=== PATIENT | male | born 1930 | race Caucasian/White ===

== ENCOUNTER → 2016-11-14 | Outpatient (REF) | payer MEDICARE ==
[2016-11-14 12:53] LABS: ALBUMIN 3.7 GM/DL (3.2-5.2); ALBUMIN/GLOBULIN RATIO 1.32 (1.00-1.93); ALKALINE PHOSPHATASE 72 U/L (45-117); ALT/SGPT 28 U/L (12-78); ANION GAP 5 MEQ/L (8-16); AST/SGOT 24 U/L (15-37); BILIRUBIN,TOTAL 0.5 MG/DL (0.2-1.0); BLOOD UREA NITROGEN 14 MG/DL (7-18); CALCIUM LEVEL 9.2 MG/DL (8.8-10.2); CARBON DIOXIDE LEVEL 30 MEQ/L (21-32); CHLORIDE LEVEL 106 MEQ/L (98-107); CHOLESTEROL LEVEL 171 MG/DL (<200); CREATININE FOR GFR 0.99 MG/DL (0.70-1.30); GLOMERULAR FILTRATION RATE > 60.0 (>35); GLUCOSE, FASTING 91 MG/DL (83-110); POTASSIUM SERUM 4.4 MEQ/L (3.5-5.1); SODIUM LEVEL 141 MEQ/L (136-145); TOTAL PROTEIN 6.5 GM/DL (6.4-8.2); TRIGLYCERIDES LEVEL 57 MG/DL (<150)
== END ==
LOC: M SFHCCLAY 08:24
PROVIDERS: ATTEND Nurse Practitioner
DX: I10 Essential (primary) hypertension (principal)

== ENCOUNTER → 2017-06-03 | Outpatient (REF) | payer MEDICARE | LOC: M SFHCCLAY 08:18 | PROVIDERS: ATTEND Nurse Practitioner | DX: R30.0 Dysuria (principal) ==

== ENCOUNTER → 2017-10-28 | Outpatient (REF) | payer MEDICARE | LOC: M SFHCCLAY 10-29 11:13 | DX: R30.0 Dysuria (principal) | CPT/HCPCS: 87186 ==

== ENCOUNTER → 2017-12-18 | Outpatient (REF) | payer MEDICARE ==
[2017-12-18 12:00] LABS: TOTAL 25(OH) VITAMIN D 37.8 NG/ML (30.0-100.0)
[2017-12-18 12:01] LABS: ALBUMIN 3.7 GM/DL (3.2-5.2); ALBUMIN/GLOBULIN RATIO 1.16 (1.00-1.93); ALKALINE PHOSPHATASE 79 U/L (45-117); ALT/SGPT 25 U/L (12-78); ANION GAP 3 MEQ/L (8-16); AST/SGOT 22 U/L (7-37); BILIRUBIN,TOTAL 0.6 MG/DL (0.2-1.0); BLOOD UREA NITROGEN 15 MG/DL (7-18); CALCIUM LEVEL 9.3 MG/DL (8.8-10.2); CARBON DIOXIDE LEVEL 30 MEQ/L (21-32); CHLORIDE LEVEL 109 MEQ/L (98-107); CHOLESTEROL LEVEL 154 MG/DL (<200); CHOLESTEROL RISK RATIO 2.406 (<5); CREATININE FOR GFR 0.95 MG/DL (0.70-1.30); GLOMERULAR FILTRATION RATE > 60.0 (>35); GLUCOSE, FASTING 87 MG/DL (70-100); HDL CHOLESTEROL 64 MG/DL (>40); LDL CHOLESTEROL 79.4 MG/DL (<100); NON-HDL-C 90 MG/DL; POTASSIUM SERUM 4.4 MEQ/L (3.5-5.1); SODIUM LEVEL 142 MEQ/L (136-145); TOTAL PROTEIN 6.9 GM/DL (6.4-8.2); TRIGLYCERIDES LEVEL 53 MG/DL (<150)
== END ==
LOC: M SFHCCLAY 08:03
DX: I10 Essential (primary) hypertension (principal)
CPT/HCPCS: 84443

== ENCOUNTER → 2017-12-25 | Outpatient (CLI) | payer MEDICARE | LOC: M CLY 15:35 | DX: R10.30 Lower abdominal pain, unspecified (principal); M16.0 Bilateral primary osteoarthritis of hip | CPT/HCPCS: 73502; G0463 ==

== ENCOUNTER → 2018-02-05 | Outpatient (CLI) | payer MEDICARE ==
[~2018-02-05] MED LIST: CONRAY-43 43% 50ML VIAL (Q9960) As Ordered; LIDOCAINE 1% MDV 20ML VIAL As Ordered; methylPREDNISolone SUSP 40 MG/ML (DEPO-medrol) VIAL (J1030) As Ordered
== END ==
LOC: M RADPRO 10:24
DX: M16.12 Unilateral primary osteoarthritis, left hip (principal)
CPT/HCPCS: 20610

== ENCOUNTER → 2018-02-10 | Outpatient (CLI) | payer MEDICARE | LOC: M RADPRO 10:18 | DX: M16.11 Unilateral primary osteoarthritis, right hip (principal) | CPT/HCPCS: 20610 ==

== ENCOUNTER → 2018-02-24 | Outpatient (CLI) | payer MEDICARE | LOC: M RAD 12:37 | DX: I70.213 Atherosclerosis of native arteries of extremities with intermittent claudication, bilateral legs (principal) | CPT/HCPCS: 93925 ==

== ENCOUNTER → 2018-04-29 | Outpatient (REF) | payer MEDICARE | LOC: M SFHCCLAY 09:05 | DX: R31.9 Hematuria, unspecified (principal) | CPT/HCPCS: 87186 ==

== ENCOUNTER → 2018-05-12 | Outpatient (REF) | payer MEDICARE ==
[2018-05-12 19:18] LABS: APPEARANCE, URINE CLEAR (CLEAR); BACTERIA, URINE AUTO 1+ (NEGATIVE); BILIRUBIN, URINE AUTO NEGATIVE (NEGATIVE); BLOOD, URINE BLOOD 1+ (NEGATIVE); COLOR, URINE YELLOW (YELLOW); GLUCOSE, URINE (UA) AUTO NEGATIVE (NEGATIVE); KETONE, URINE AUTO NEGATIVE (NEGATIVE); LEUKOCYTE ESTERASE, URINE AUTO NEGATIVE (NEGATIVE); NITRITE, URINE AUTO NEGATIVE (NEGATIVE); PROTEIN, URINE AUTO NEGATIVE (NEGATIVE); RBC, URINE AUTO 1 /HPF (0-3); SQUAMOUS EPITHELIAL CELL UR AU 0 /HPF (0-6); UROBILINOGEN, URINE AUTO 0.2 mg/dL (0.0-2.0); WBC, URINE AUTO 1 /HPF (0-3)
== END ==
LOC: M LABSMT 11:41
DX: N39.0 Urinary tract infection, site not specified (principal)
CPT/HCPCS: 81001

== ENCOUNTER → 2018-05-22 | Outpatient (REF) | payer MEDICARE | LOC: M LABSMT 10:00 | DX: N39.0 Urinary tract infection, site not specified (principal) | CPT/HCPCS: 87086 ==

== ENCOUNTER → 2018-05-28 | Outpatient (CLI) | payer MEDICARE ==
[2018-05-28 11:24] LABS: HEMATOCRIT 37.3 % (42.0-52.0); HEMOGLOBIN 12.2 g/dl (13.5-17.5); MEAN CORPUSCULAR HEMOGLOBIN 28.3 pg (27.0-33.0); MEAN CORPUSCULAR HGB CONC 32.7 g/dl (32.0-36.5); MEAN CORPUSCULAR VOLUME 86.5 fl (80.0-96.0); PLATELET COUNT, AUTOMATED 164 10^3/uL (150-450); RED BLOOD COUNT 4.31 10^6/uL (4.30-6.10); RED CELL DISTRIBUTION WIDTH 14.4 % (11.5-14.5); WHITE BLOOD COUNT 4.7 10^3/uL (4.0-10.0)
[2018-05-28 11:34] LABS: INR 0.98; PROTHROMBIN TIME 13.1 SECONDS (12.1-14.4)
[2018-05-28 11:48] LABS: ERYTHROCYTE SEDIMENTATION RATE 9 mm/hr (0-30)
[2018-05-28 11:58] LABS: ALBUMIN 3.5 GM/DL (3.2-5.2); ALBUMIN/GLOBULIN RATIO 1.25 (1.00-1.93); ALKALINE PHOSPHATASE 76 U/L (45-117); ALT/SGPT 20 U/L (12-78); ANION GAP 5 MEQ/L (8-16); AST/SGOT 18 U/L (7-37); BILIRUBIN,TOTAL 0.5 MG/DL (0.2-1.0); BLOOD UREA NITROGEN 18 MG/DL (7-18); CALCIUM LEVEL 9.3 MG/DL (8.8-10.2); CARBON DIOXIDE LEVEL 30 MEQ/L (21-32); CHLORIDE LEVEL 108 MEQ/L (98-107); CREATININE FOR GFR 0.94 MG/DL (0.70-1.30); GLOMERULAR FILTRATION RATE > 60.0 (>35); GLUCOSE, FASTING 87 MG/DL (70-100); POTASSIUM SERUM 4.5 MEQ/L (3.5-5.1); SODIUM LEVEL 143 MEQ/L (136-145); TOTAL PROTEIN 6.3 GM/DL (6.4-8.2)
== END ==
LOC: M LAB 10:26
DX: Z01.812 Encounter for preprocedural laboratory examination (principal); M16.11 Unilateral primary osteoarthritis, right hip
CPT/HCPCS: 71046

== ENCOUNTER → 2018-07-27 | Outpatient (CLI) | payer MEDICARE ==
[2018-07-27 10:33] LABS: HEMATOCRIT 42.9 % (42.0-52.0); HEMOGLOBIN 13.9 g/dl (13.5-17.5); MEAN CORPUSCULAR HEMOGLOBIN 28.2 pg (27.0-33.0); MEAN CORPUSCULAR HGB CONC 32.4 g/dl (32.0-36.5); PLATELET COUNT, AUTOMATED 186 10^3/uL (150-450); RED BLOOD COUNT 4.93 10^6/uL (4.30-6.10); RED CELL DISTRIBUTION WIDTH 13.8 % (11.5-14.5); WHITE BLOOD COUNT 5.3 10^3/uL (4.0-10.0)
[2018-07-27 10:46] LABS: INR 0.95; PROTHROMBIN TIME 12.8 SECONDS (12.1-14.4)
[2018-07-27 10:52] LABS: ERYTHROCYTE SEDIMENTATION RATE 4 mm/hr (0-30)
[2018-07-27 10:57] LABS: ALBUMIN 3.9 GM/DL (3.2-5.2); ALBUMIN/GLOBULIN RATIO 1.22 (1.00-1.93); ALKALINE PHOSPHATASE 86 U/L (45-117); ALT/SGPT 23 U/L (12-78); ANION GAP 6 MEQ/L (8-16); AST/SGOT 25 U/L (7-37); BILIRUBIN,TOTAL 0.4 MG/DL (0.2-1.0); BLOOD UREA NITROGEN 17 MG/DL (7-18); CALCIUM LEVEL 9.9 MG/DL (8.8-10.2); CARBON DIOXIDE LEVEL 28 MEQ/L (21-32); CHLORIDE LEVEL 107 MEQ/L (98-107); CREATININE FOR GFR 1.07 MG/DL (0.70-1.30); GLOMERULAR FILTRATION RATE > 60.0 (>35); GLUCOSE, FASTING 98 MG/DL (70-100); POTASSIUM SERUM 4.1 MEQ/L (3.5-5.1); SODIUM LEVEL 141 MEQ/L (136-145); TOTAL PROTEIN 7.1 GM/DL (6.4-8.2)
== END ==
LOC: M LAB 09:56
DX: Z01.818 Encounter for other preprocedural examination (principal); M51.34 Other intervertebral disc degeneration, thoracic region; M13.851 Other specified arthritis, right hip
CPT/HCPCS: 71046

== ENCOUNTER 2018-08-07 11:37 | Inpatient (IN) | payer MEDICARE ==
[~2018-08-07 11:37] MED LIST changes: -CONRAY-43 43% 50ML VIAL (Q9960) As Ordered; -LIDOCAINE 1% MDV 20ML VIAL As Ordered; +MIDAZOLAM INJ 2 MG/2 ML VIAL (J2250) As Ordered; +ONDANSETRON 4MG/2ML VIAL (J2405) As Ordered; +PROPOFOL 200 MG/20 ML VIAL As Ordered; +dexameTHASONE 4 MG/ML 1ML VIAL (J1100) As Ordered; +fentaNYL 100 MCG/2 ML INJECTION (J3010) As Ordered; -methylPREDNISolone SUSP 40 MG/ML (DEPO-medrol) VIAL (J1030) As Ordered
[2018-08-07] MEDS: ACETAMINOPHEN 500 MG TAB PO (12:38)
[2018-08-07] MEDS: LR 1,000 ML IV ×3 (12:38→19:41)
[2018-08-07] MEDS: ceFAZolin 2 GM/D5W 50 ML IV BAG (J0690 PER 500MG) As Ordered (14:52)
[2018-08-07] MEDS: ceFAZolin 1GM INJ (J0690 PER 500MG) As Ordered (15:01)
[2018-08-07] MEDS ORDERED: BUPIVACAINE/DEXTROSE 0.75% 2 ML AMP As Ordered (15:17)
[2018-08-07] MEDS ORDERED: LIDOCAINE 2% INJ 100 MG/5 ML SDV (FOR ANES.) As Ordered (15:18)
[2018-08-07] MEDS ORDERED: PROPOFOL 200 MG/20 ML VIAL As Ordered (16:04)
[2018-08-07] MEDS ORDERED: MORPHINE 1MG/ML IN 0.9% NACL 100ML IV BAG As Ordered (16:26)
[2018-08-07] MEDS ORDERED: diphenhydrAMINE INJ 50MG/ML VIAL (J1200) IV (17:00)
[2018-08-07] MEDS ORDERED: ACETAMINOPHEN TAB 650MG DOSE (2X325MG) PO (17:00)
[2018-08-07] MEDS ORDERED: MORPHINE 1MG/ML IN 0.9% NACL 100ML IV BAG IV (17:00)
[2018-08-07] MEDS ORDERED: ONDANSETRON 4MG/2ML VIAL (J2405) IV ×2 (17:00)
[2018-08-07] MEDS ORDERED: FLEET ENEMA PR (17:00)
[2018-08-07] MEDS ORDERED: fentaNYL 100 MCG/2 ML INJECTION (J3010) IV (17:00)
[2018-08-07] MEDS ORDERED: EPIDURAL/PCA KEYS XX (17:00)
[2018-08-07] MEDS ORDERED: NALOXONE INJ 0.4 MG/1 ML VIAL (J2310) IV (17:00)
[2018-08-07] MEDS ORDERED: NALBUPHINE HCL 10 MG/ML AMP (J2300) IV (17:00)
[2018-08-07] MEDS ORDERED: MORPHINE 10 MG/ML 1ML VIAL (J2270) IV (17:00)
[2018-08-07] MEDS ORDERED: IPRATROPIUM 0.5MG/ALBUTEROL 2.5MG INH SOL UD 3ML (DUONEB)(J7620) NEB (21:15)
[2018-08-07 21:24] LABS: BEDSIDE GLUCOSE 180 MG/DL (83-110)
[2018-08-07] MEDS: FINASTERIDE 5 MG TAB PO (21:24)
[2018-08-08] MEDS: LR 1,000 ML IV (05:23)
[2018-08-08 06:01] LABS: BASO % 0.1 % (0.0-1.0); HEMATOCRIT 35.2 % (42.0-52.0); HEMOGLOBIN 11.5 g/dl (13.5-17.5); IMMATURE GRANULOCYTE % 0.6 % (0-3.0); LYMPH # 0.7 10^3/uL (1.5-4.5); LYMPH % 8.9 % (24.0-44.0); MEAN CORPUSCULAR HEMOGLOBIN 28.1 pg (27.0-33.0); MEAN CORPUSCULAR HGB CONC 32.7 g/dl (32.0-36.5); MEAN CORPUSCULAR VOLUME 86.1 fl (80.0-96.0); MONO # 0.8 10^3/uL (0.0-0.8); MONO % 10.2 % (0.0-5.0); NEUTROPHILS # 6.5 10^3/uL (1.8-7.7); NEUTROPHILS % 80.2 % (36.0-66.0); PLATELET COUNT, AUTOMATED 170 10^3/uL (150-450); RED BLOOD COUNT 4.09 10^6/uL (4.30-6.10); RED CELL DISTRIBUTION WIDTH 13.5 % (11.5-14.5); WHITE BLOOD COUNT 8.1 10^3/uL (4.0-10.0)
[2018-08-08 06:11] LABS: INR 1.11; PROTHROMBIN TIME 14.4 SECONDS (12.1-14.4)
[2018-08-08 06:26] LABS: ANION GAP 6 MEQ/L (8-16); BLOOD UREA NITROGEN 15 MG/DL (7-18); CALCIUM LEVEL 8.6 MG/DL (8.8-10.2); CARBON DIOXIDE LEVEL 29 MEQ/L (21-32); CHLORIDE LEVEL 105 MEQ/L (98-107); CREATININE FOR GFR 1.06 MG/DL (0.70-1.30); GLOMERULAR FILTRATION RATE > 60.0 (>35); GLUCOSE, FASTING 128 MG/DL (70-100); POTASSIUM SERUM 3.8 MEQ/L (3.5-5.1); SODIUM LEVEL 140 MEQ/L (136-145)
[2018-08-08] MEDS ORDERED: PERCOCET 5MG/325MG TAB PO (06:45)
[2018-08-08] MEDS ORDERED: ONDANSETRON 4 MG TAB (S0181) PO (06:45)
[2018-08-08] MEDS ORDERED: METOPROLOL SUCC (TopROL XL) 50MG **XL** TAB PO (09:00)
[2018-08-08] MEDS: SENOKOT S TAB PO ×2 (09:14→21:29)
[2018-08-08] MEDS: METOPROLOL SUCC (TopROL XL) 50MG **XL** TAB PO (09:15)
[2018-08-08] MEDS: LISINOPRIL 40 MG TAB PO (09:15)
[2018-08-08] MEDS: TAMSULOSIN 0.4 MG CAP PO (09:15)
[2018-08-08] MEDS: MOM 30ML SUSPENSION UDC PO (09:16)
[2018-08-08] MEDS: MIRALAX *UNIT DOSE* 17GM PACKET PO (09:16)
[2018-08-08] MEDS: ASPIRIN 81 MG ENTERIC TAB PO (09:16)
[2018-08-08] MEDS: MULTIVITAMINS/MINERALS THERAP 1 TAB PO (09:16)
[2018-08-08] MEDS: OYSTER SHELL CALCIUM 500 MG TAB PO (09:16)
[2018-08-08] MEDS: PERCOCET 5MG/325MG TAB PO ×3 (09:17→21:29)
[2018-08-08] MEDS: RIVAROXABAN 10 MG TAB (XARELTO) PO (17:27)
[2018-08-08] MEDS: FINASTERIDE 5 MG TAB PO (21:25)
[2018-08-08] MEDS: amLODIPine 5 MG TAB PO (21:27)
[2018-08-09 06:18] LABS: BASO % 0.3 % (0.0-1.0); EOS # 0.2 10^3/uL (0.0-0.50); EOS % 2.3 % (0.0-3.0); HEMATOCRIT 34.4 % (42.0-52.0); HEMOGLOBIN 10.9 g/dl (13.5-17.5); IMMATURE GRANULOCYTE % 0.3 % (0-3.0); LYMPH # 1.5 10^3/uL (1.5-4.5); LYMPH % 17.6 % (24.0-44.0); MEAN CORPUSCULAR HEMOGLOBIN 27.7 pg (27.0-33.0); MEAN CORPUSCULAR HGB CONC 31.7 g/dl (32.0-36.5); MEAN CORPUSCULAR VOLUME 87.3 fl (80.0-96.0); MONO # 0.8 10^3/uL (0.0-0.8); MONO % 9.4 % (0.0-5.0); NEUTROPHILS % 70.1 % (36.0-66.0); PLATELET COUNT, AUTOMATED 186 10^3/uL (150-450); RED BLOOD COUNT 3.94 10^6/uL (4.30-6.10); RED CELL DISTRIBUTION WIDTH 13.9 % (11.5-14.5); WHITE BLOOD COUNT 8.6 10^3/uL (4.0-10.0)
[2018-08-09 06:34] LABS: ANION GAP 3 MEQ/L (8-16); BLOOD UREA NITROGEN 30 MG/DL (7-18); CALCIUM LEVEL 9.3 MG/DL (8.8-10.2); CARBON DIOXIDE LEVEL 32 MEQ/L (21-32); CHLORIDE LEVEL 105 MEQ/L (98-107); CREATININE FOR GFR 1.48 MG/DL (0.70-1.30); GLOMERULAR FILTRATION RATE 48.1 (>35); GLUCOSE, FASTING 97 MG/DL (70-100); POTASSIUM SERUM 4.4 MEQ/L (3.5-5.1); SODIUM LEVEL 140 MEQ/L (136-145)
[2018-08-09] MEDS: PERCOCET 5MG/325MG TAB PO ×3 (06:52→15:03)
[2018-08-09] MEDS: MIRALAX *UNIT DOSE* 17GM PACKET PO (09:09)
[2018-08-09] MEDS: MOM 30ML SUSPENSION UDC PO (09:09)
[2018-08-09] MEDS: OYSTER SHELL CALCIUM 500 MG TAB PO (09:10)
[2018-08-09] MEDS: MULTIVITAMINS/MINERALS THERAP 1 TAB PO (09:10)
[2018-08-09] MEDS: SENOKOT S TAB PO (09:10)
[2018-08-09] MEDS: LISINOPRIL 40 MG TAB PO (09:11)
[2018-08-09] MEDS: TAMSULOSIN 0.4 MG CAP PO (09:11)
[2018-08-09] MEDS: METOPROLOL SUCC (TopROL XL) 50MG **XL** TAB PO (09:11)
[2018-08-09] MEDS: ASPIRIN 81 MG ENTERIC TAB PO (09:11)
[2018-08-09] MEDS: MAGNESIUM CITRATE 300 ML BTL PO (09:14)
[2018-08-09] MEDS ORDERED: MAGNESIUM CITRATE 300 ML BTL PO (10:00)
[2018-08-09] MEDS: SODIUM CHLORIDE 0.9% 1000ML IV (12:17)
[2018-08-09] MEDS: RIVAROXABAN 10 MG TAB (XARELTO) PO (18:42)
== END 2018-08-09 19:30 | disposition home health service (06) | DRG 470 ==
LOC: M OR 11:37 → M MS5PR 17:40
PROVIDERS: Orthopaedic Surgery
PROC: 0SR902Z Replacement of Right Hip Joint with Metal on Polyethylene Synthetic Substitute, Open Approach (ICD-10-PCS; principal; 2018-08-07 14:00)
DX: M16.11 Unilateral primary osteoarthritis, right hip (principal); Z79.899 Other long term (current) drug therapy; Z79.82 Long term (current) use of aspirin; I10 Essential (primary) hypertension; F41.9 Anxiety disorder, unspecified; N40.0 Benign prostatic hyperplasia without lower urinary tract symptoms; Z87.891 Personal history of nicotine dependence

== ENCOUNTER → 2018-12-21 | Outpatient (REF) | payer MEDICARE ==
[~2018-12-21] MED LIST changes: +AMLO5TAB6 PO; +ASPI-1 PO; +ASPI81TA26 PO; +BIOT50004 PO; +CALC500T49 PO; +FINA5TAB2 PO; +FISH1000 PO; +FLOM0.4C39 PO; +LISI40TA PO; +MAGN250T7 PO; +METO1TAB7 PO; -MIDAZOLAM INJ 2 MG/2 ML VIAL (J2250) As Ordered; +MULT1TAB10 PO; -ONDANSETRON 4MG/2ML VIAL (J2405) As Ordered; +PERC5TAB12 PO; +PROBCAP14 PO; -PROPOFOL 200 MG/20 ML VIAL As Ordered; +THERCAP7 PO; +TURM450C PO; +VITA-110 PO; +VITATAB11 PO; +XARE10TA PO; -dexameTHASONE 4 MG/ML 1ML VIAL (J1100) As Ordered; -fentaNYL 100 MCG/2 ML INJECTION (J3010) As Ordered
[2018-12-21 11:54] LABS: HEMATOCRIT 40.3 % (42.0-52.0); HEMOGLOBIN 12.8 g/dl (13.5-17.5); MEAN CORPUSCULAR HEMOGLOBIN 26.9 pg (27.0-33.0); MEAN CORPUSCULAR HGB CONC 31.8 g/dl (32.0-36.5); MEAN CORPUSCULAR VOLUME 84.7 fl (80.0-96.0); PLATELET COUNT, AUTOMATED 190 10^3/uL (150-450); RED BLOOD COUNT 4.76 10^6/uL (4.30-6.10); WHITE BLOOD COUNT 4.7 10^3/uL (4.0-10.0)
[2018-12-21 12:13] LABS: ALBUMIN 3.7 GM/DL (3.2-5.2); ALT/SGPT 24 U/L (12-78); BILIRUBIN,TOTAL 0.5 MG/DL (0.2-1.0); BLOOD UREA NITROGEN 17 MG/DL (7-18); CALCIUM LEVEL 9.2 MG/DL (8.8-10.2); CARBON DIOXIDE LEVEL 31 MEQ/L (21-32); CHLORIDE LEVEL 108 MEQ/L (98-107); CREATININE FOR GFR 0.93 MG/DL (0.70-1.30); GLOMERULAR FILTRATION RATE > 60.0 (>35); GLUCOSE, FASTING 91 MG/DL (70-100); POTASSIUM SERUM 4.4 MEQ/L (3.5-5.1); SODIUM LEVEL 141 MEQ/L (136-145); TOTAL 25(OH) VITAMIN D 35.4 NG/ML (30.0-100.0); TOTAL PROTEIN 6.4 GM/DL (6.4-8.2)
[2018-12-23 17:23] LABS: CHOLESTEROL LEVEL 173 MG/DL (<200); CHOLESTEROL RISK RATIO 2.582 (<5); HDL CHOLESTEROL 67 MG/DL (>40); LDL CHOLESTEROL 94 MG/DL (<100); NON-HDL-C 106 MG/DL; TRIGLYCERIDES LEVEL 62 MG/DL (<150)
== END ==
LOC: M SFHCCLAY 08:50
PROVIDERS: ATTEND Family Medicine
DX: K21.0 Gastro-esophageal reflux disease with esophagitis (principal); I10 Essential (primary) hypertension; M81.0 Age-related osteoporosis without current pathological fracture

== ENCOUNTER → 2018-12-23 | Outpatient (REF) | payer MEDICARE | LOC: M SFHCCLAY 15:09 | PROVIDERS: ATTEND Family Medicine | DX: I10 Essential (primary) hypertension (principal); E78.00 Pure hypercholesterolemia, unspecified ==

== ENCOUNTER → 2019-02-12 | Outpatient (CLI) | payer MEDICARE ==
[2019-02-12 14:38] LABS: COLLAGEN EPINEPHRINE 102 SECONDS (74-162)
== END ==
LOC: M LAB 13:52
PROVIDERS: ATTEND Ophthalmology
DX: H02.831 Dermatochalasis of right upper eyelid (principal); H02.834 Dermatochalasis of left upper eyelid; H02.423 Myogenic ptosis of bilateral eyelids

== ENCOUNTER → 2019-04-01 | Outpatient (CLI) | payer MEDICARE ==
[2019-04-01 13:24] LABS: COLLAGEN EPINEPHRINE 125 SECONDS (74-162)
== END ==
LOC: M LAB 12:37
PROVIDERS: ATTEND Ophthalmology
DX: H02.831 Dermatochalasis of right upper eyelid (principal); H02.834 Dermatochalasis of left upper eyelid; H02.423 Myogenic ptosis of bilateral eyelids

== ENCOUNTER → 2019-05-21 | Outpatient (CLI) | payer MEDICARE ==
[2019-05-21 14:17] LABS: HEMATOCRIT 41.9 % (42.0-52.0); HEMOGLOBIN 13.8 g/dl (13.5-17.5); MEAN CORPUSCULAR HEMOGLOBIN 28.9 pg (27.0-33.0); MEAN CORPUSCULAR HGB CONC 32.9 g/dl (32.0-36.5); MEAN CORPUSCULAR VOLUME 87.7 fl (80.0-96.0); PLATELET COUNT, AUTOMATED 177 10^3/uL (150-450); RED BLOOD COUNT 4.78 10^6/uL (4.30-6.10); WHITE BLOOD COUNT 4.6 10^3/uL (4.0-10.0)
[2019-05-21 14:33] LABS: INR 1.09; PROTHROMBIN TIME 13.8 SECONDS (11.8-14.0)
[2019-05-21 14:42] LABS: ALBUMIN 3.9 GM/DL (3.2-5.2); ALT/SGPT 25 U/L (12-78); BILIRUBIN,TOTAL 0.4 MG/DL (0.2-1.0); BLOOD UREA NITROGEN 15 MG/DL (7-18); CALCIUM LEVEL 9.8 MG/DL (8.8-10.2); CARBON DIOXIDE LEVEL 31 MEQ/L (21-32); CHLORIDE LEVEL 106 MEQ/L (98-107); CREATININE FOR GFR 1.06 MG/DL (0.70-1.30); GLOMERULAR FILTRATION RATE > 60.0 (>35); GLUCOSE, FASTING 87 MG/DL (70-100); POTASSIUM SERUM 4.5 MEQ/L (3.5-5.1); SODIUM LEVEL 142 MEQ/L (136-145); TOTAL PROTEIN 7.2 GM/DL (6.4-8.2)
[2019-05-21 14:48] LABS: ERYTHROCYTE SEDIMENTATION RATE 6 mm/hr (0-20)
--- NOTE | 2019-05-21 17:54 | REP ---
HISTORY: Preoperative examination. The patient has hip pain. COMPARISON: 07/27/2018 There is basilar fibrotic change, status quo. Cardiomediastinal silhouette is unchanged. The heart is not enlarged. There is no significant change in the appearance of the osseous structures. Spinal degenerative changes are noted, status quo. IMPRESSION: No significant change from the prior exam. No evidence of acute cardiopulmonary disease. Electronically Signed by Kavin Gomez DO 05/24/2019 04:11 P
--- NOTE | 2019-05-21 23:30 | ECGEPIP ---
[facility] Test Date: 2019-05-21 Pat Name: CHRIS ARGUELLO Department: Room: - Gender: Male Rink Rat: DESI : [id number] Requested By: Usha Olmos @ [facility] Order Number: [id number] Reading MD: Noah Rahman Measurements Intervals [place] Rate: 64 P: 48 VA: 209 QRS: -49 QRSD: 162 T: 3 QT: 413 QTc: 428 Interpretive Statements SINUS RHYTHM RIGHT BUNDLE BRANCH BLOCK LEFT ANTERIOR FASCICULAR BLOCK No remarkable changes, compared to the last 3 tracins in the system Electronically Signed on 05-21-2019 23:30:15 EDT by Noah Rahman
== END ==
LOC: M LAB 13:20
PROVIDERS: ATTEND Orthopaedic Surgery
DX: Z01.818 Encounter for other preprocedural examination (principal); M16.12 Unilateral primary osteoarthritis, left hip; I45.2 Bifascicular block

== ENCOUNTER 2019-06-09 05:44 | Inpatient (IN) | payer MEDICARE ==
--- NOTE | 2019-06-03 09:50 | HPE ---
DATE OF ADMISSION: 06/09/2019 ATTENDING PHYSICIAN: Dr. Yee CHIEF COMPLAINT: Left hip pain and stiffness. HISTORY: The patient is a pleasant 88-year-old male with progressively worsening left hip pain and stiffness. He has failed to improve with conservative measures. He continues to have symptoms with weightbearing activities and activities of daily living. He has consented for an elective left total hip arthroplasty with Dr. Yee for his continued symptoms. Medical optimization completed with Dr. Mccormick and was reviewed today. CURRENT MEDICATIONS: - aspirin 81 mg daily - tamsulosin 0.4 mg daily - metoprolol 50 mg daily - finasteride 5 mg daily - lisinopril 40 mg daily - amlodipine 5 mg daily - vitamin D 2000 units every other day - tumeric 1 tablet daily - vitamin B12 100 mcg three times weekly - fish oil 1000 mg daily - probiotic capsule daily ALLERGIES: There are no known drug allergies. PAST MEDICAL HISTORY: Benign essential hypertension. Benign prostatic hyperplasia. Vitamin D deficiency. History of deep venous thrombosis. Right bundle branch block. History of basal cell skin cancer and melanoma. PAST SURGICAL HISTORY: Transurethral resection of prostate (TURP). Cataract removal bilaterally. Melanoma excision. Blood clot following surgery. Colonoscopy. Hernia repair. Right total hip arthroplasty. FAMILY HISTORY: Positive for diabetes, hypertension and cancer. SOCIAL HISTORY: The patient is a nonsmoker and lives at home with his . REVIEW OF SYSTEMS: The patient denies fevers, chills, nausea, vomiting or diarrhea. Denies chest pain, shortness of breath, lightheadedness or dizziness. He does have seasonal allergies with postnasal drip. He does continue to have left hip pain with weightbearing activities and activities of daily living. PHYSICAL EXAMINATION: Well-nourished, well-developed male in no apparent distress. He is alert, oriented and cooperative. Mood and affect are appropriate. VITAL SIGNS: Height 65 inches, weight 191.4 pounds, temperature 97.4, blood pressure 132/78, heart rate 70, respirations 15. NECK: Supple without lymphadenopathy. HEART: Regular rate and rhythm. LUNGS: Clear to auscultation bilaterally. ABDOMEN: Bowel sounds present. Abdomen is soft and nontender to palpation. MUSCULOSKELETAL: Left hip exhibits no gross abnormalities. There is mild tenderness along the groin. He has decreased flexion and internal rotation at the hip. There was associated pain with range of motion testing. Left lower extremity strength is 5/5. Calf is soft, nontender to palpation with no palpable cords noted. He is neurovascularly intact distally. LABORATORY DATA: EKG sinus rhythm with a right bundle branch block and left anterior fascicular block. Chest x-ray no significant change from prior exam. No evidence of acute cardiopulmonary disease. X-rays of the left hip notable for end-stage degenerative changes. Prothrombin time 13.8, INR 1.09. Comprehensive metabolic profile fasting glucose 87, BUN 15, creatinine 1.06, GFR greater than 60, sodium 142, potassium 4.5, chloride 106, carbon dioxide 31, anion gap decreased at 5, calcium 9.8, AST 22, ALT 25, alkaline phosphatase 91, total bilirubin 0.4, total protein 7.2, albumin 3.9, albumin-globulin ratio 1.18. Complete blood count ESR 6, WBC is 4.6, RBC is 4.78, hemoglobin 13.8, hematocrit decreased at 41.9, platelets 177. IMPRESSION: Left hip osteoarthritis with x-rays notable for end-stage degenerative changes. PLAN: The patient has consented for an elective left total hip arthroplasty with Dr. Yee for his continued symptoms. Medical optimization completed with Dr. Mccormick. LINDA
[~2019-06-09] VITALS: Ht 165.1 cm; Wt 85.3 kg
[2019-06-09] VITALS (7 sets, daily range): BP systolic 88–113; BP diastolic 55–71
[~2019-06-09 05:44] MED LIST changes: +B COTAB3 PO; +CALC500C16 PO; +CHOL100029 PO; +CRAN400T3 PO; +ECOT81TA5 PO; +MAGN400C PO; +MULTCAP PO; +THERSOL3 OD; +TURM500C3 PO
[2019-06-09] MEDS ORDERED: ACETAMINOPHEN 500 MG TAB PO ONE (06:00)
[2019-06-09] MEDS ORDERED: LR 1,000 ML IV ONE (06:00)
[2019-06-09] MEDS ORDERED: ceFAZolin SOD 2 GM in IV 1 EA IV ONE (06:00)
[2019-06-09] MEDS ORDERED: ceFAZolin 1GM INJ (J0690 PER 500MG) As Ordered ONE (06:56)
[2019-06-09] MEDS ORDERED: EPINEPHrine INJ 1 MG/ML 1ML AMP As Ordered ONE (06:57)
[2019-06-09] MEDS ORDERED: LIDOCAINE 2% INJ 100 MG/5 ML SDV (FOR ANES.) As Ordered ONE ×2 (07:14→08:27)
[2019-06-09] MEDS ORDERED: fentaNYL 100 MCG/2 ML INJECTION (J3010) As Ordered ONE (07:14)
[2019-06-09] MEDS ORDERED: PROPOFOL 200 MG/20 ML VIAL As Ordered ONE ×2 (07:14→08:14)
[2019-06-09] MEDS ORDERED: ePHEDrine SULFATE 25 MG/5 ML(5MG/ML) SYRINGE As Ordered ONE (08:47)
[2019-06-09] MEDS ORDERED: PHENYLephrine HCL 500 MCG/5 ML (100MCG/ML) SYRINGE (J2370) As Ordered ONE ×2 (08:53→09:30)
[2019-06-09] MEDS ORDERED: PERCOCET 5MG/325MG TAB PO PRN (10:15)
[2019-06-09] MEDS ORDERED: fentaNYL 100 MCG/2 ML INJECTION (J3010) IV PRN (10:15)
[2019-06-09] MEDS ORDERED: LR 1,000 ML IV SCH (10:15)
[2019-06-09] MEDS ORDERED: HYDROMORPHONE HCL 0.5 MG/ 0.5 ML SYRINGE (J1170 PER 1) IV PRN ×2 (10:15→11:16)
[2019-06-09] MEDS ORDERED: ONDANSETRON 4MG/2ML VIAL (J2405) IV PRN (10:15)
--- NOTE | 2019-06-09 11:06 | REP ---
LEFT HIP, TWO VIEWS: Two portable view of the left hip performed. There is placement of the total left hip prosthesis which appears to be in good position. Osseous structures are intact and well aligned. Metallic skin davion are seen laterally. Electronically Signed by Jonny Gilbert MD 06/11/2019 12:42 A
[2019-06-09] MEDS ORDERED: ACETAMINOPHEN TAB 650MG DOSE (2X325MG) PO PRN (11:16)
[2019-06-09] MEDS ORDERED: FLEET ENEMA PR PRN (11:16)
[2019-06-09] MEDS: LR 1,000 ML IV SCH ×2 (11:40→20:42)
--- NOTE | 2019-06-09 13:28 | CR.PDOC ---
General Date of Consultation: Jun 09, 2019 Consultation REASON FOR CONSULTATION/CHIEF COMPLAINT: Who presented to [facility] for an elective orthopedic procedure HISTORY OF PRESENT ILLNESS: Patient is an 88-year-old male with a PMHx of DVT, RBBB, HTN, BPH, Vitamin D deficiency, Hx of Melanoma (s/p resection) who presented to [facility] for an elective orthopedic procedure. Patient received outpatient clearance for his left total hip arthroplasty with Dr. Héctor Mccormick. . Hospitalist service was consulted for medical management. Patient was seen postoperatively. He denies headache, nausea, vomiting, chest pain, shortness of breath, palpitations, abdominal pain, constipation, diarrhea, urinary discomfort. Over last 2 weeks he has denied any fevers or chills. Patient reports that his appetite is very good and he denies any significant change to his weight. ALLERGIES: Please see below. HOME MEDICATIONS: Please see below. PAST MEDICAL HISTORY: DVT, RBBB, HTN, BPH, Vitamin D deficiency, Hx of Melanoma (s/p resection) PAST SURGICAL HISTORY: TURP Bilateral cataract extraction Melanoma excision Hernia repair 2 Right hip total arthroplasty 2017 FAMILY HISTORY: - Mother with history of diabetes - Father with a history of hypertension and colon cancer SOCIAL HISTORY: - Denies the use of tobacco or illicit drugs; patient reports social alcohol use - Denies recent travel or sick contacts - Lives with in [place]. 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 [employer] REVIEW OF SYSTEMS: 10 point review of systems complete, all negative otherwise stated in HPI PHYSICAL EXAMINATION: - Vitals: BP 107/54, HR 58, RR 16, Sat 99%RA, Temp 97.0F - General: Lying in bed, No acute distress, Speaking in full sentences, AAOx3 - HEENT: NC, AT, PERRLA, EOMI - CVS: RRR, +S1S2 - Lungs: Fair air entry bilaterally, No appreciable wheezing / rales / rhonchi - Abdomen: Soft, Non-distended, Non-tender - Extremities: No lower extremity edema, No calf tenderness - Neuro: No focal motor or sensory deficit - Skin: No visible rashes LABORATORY DATA: Please see below. ASSESSMENT/PLAN: Elective total left hip arthroplasty (POD#0) - Patient presented to [facility] for an elective procedure with orthopedic surgery - Has received outpatient medical clearance from Dr. Mccormick - Pain control and coagulation, and physical therapy at the direction of primary orthopedic team Hx of DVT - Patient reports that he developed a blood clot one year ago that occurred following TURP procedure - Patient is currently off anticoagulation for this purpose RBBB HTN - c/w Metoprolol, Lisinopril and Amlodipine with holding paraemters BPH - c/w Tamsulosin Vitamin D deficiency - c/w Supplementation Hx of Melanoma - s/p resection DVT prophylaxis - Anti-coagulation as per primary orthopedic team Vital Signs/I&O Vital Signs Date Time Temp Pulse Resp B/P (MAP) Pulse Ox O2 Delivery O2 Flow Rate FiO2 06/09/19 10:45 58 16 107/54 (71) 99 Room Air 06/09/19 10:30 97.0 Allergies Coded Allergies: ENVIROMENTAL (Verified Allergy, Unknown, 06/08/19) Home Medications Scheduled Amlodipine Besylate (Amlodipine Besylate) 5 Mg Tab, 5 MG PO QHS, (Reported) Aspirin (Ecotrin) 81 Mg Tablet.dr, 81 MG PO DAILY, (Reported) Biotin (Biotin) 5,000 Mcg Cap, 5,000 MCG PO DAILY, (Reported) Calcium Carbonate (Calcium) 500 Mg Tab.chew, 500 MG PO DAILY, (Reported) Carboxymethylcellulose Sodium (Thera Tears) 15 Ml Drops, 1 DROP OD DAILY, #15 (Reported) Cranberry Fruit (Cranberry) 400 Mg Tablet, 400 MG PO DAILY, (Reported) Finasteride (Finasteride) 5 Mg Tab, 5 MG PO QHS, (Reported) Lactobacillus Acidophilus (Probiotic) 1 Cap Cap, 1 CAP PO QHS, (Reported) Lisinopril (Lisinopril) 40 Mg Tab, 40 MG PO DAILY, (Reported) Magnesium Oxide (Magnesium) 400 Mg Capsule, 400 MG PO 3XW, (Reported) Metoprolol Succinate (Metoprolol Succinate) 50 Mg Tab, 50 MG PO DAILY, (Reported) Multivitamin (Multivitamins) 1 Each Capsule, 1 CAP PO DAILY, (Reported) Omeg3/Epa/Dha/Fish Oil/Flax/E (Thera Tears Nutrition Capsule) 1 Cap Cap, 1 CAP PO 3XW, (Reported) [place]-3 Fatty Acids/Fish Oil (Fish Oil 1,000 mg Capsule) 1 Each Capsule, 1,000 MG PO DAILY, (Reported) Tamsulosin HCl (Flomax) 0.4 Mg Cap, 0.4 MG PO DAILY, (Reported) Turmeric/Turmeric Root Extract (Turmeric 450-50 mg Capsule) 1 Each Capsule, 500 MG PO DAILY, (Reported) Vitamin B Complex (Vitamin B Complex) 1 Each Tablet, 1 TAB PO DAILY, (Reported) Vitamin D (Vitamin D3) 1,000 Unit Tablet, 2,000 UNITS PO Q2D, (Reported) VALENTE HUTCHINS MD Jun 09, 2019 13:28
[2019-06-09] MEDS: HYDROMORPHONE HCL 0.5 MG/ 0.5 ML SYRINGE (J1170 PER 1) IV PRN ×2 (13:34→23:40)
[2019-06-09] MEDS: ceFAZolin SOD 2 GM in IV 1 EA IV SCH ×2 (13:37→20:03)
[2019-06-09] MEDS: LISINOPRIL 40 MG TAB PO SCH (13:39)
--- NOTE | 2019-06-09 13:46 | RO ---
DATE OF PROCEDURE: 06/09/2019 PREOPERATIVE DIAGNOSIS: Left hip osteoarthritis. POSTOPERATIVE DIAGNOSIS: Left hip osteoarthritis. OPERATIVE PROCEDURE: Left total hip arthroplasty using a size 60 GRIPTION sector cup with a single screw with a 40 mm neutral liner, and a 1.5 neck by 40 mm ball with a size 8 standard offset Culebra stem. Prosthesis was made by [employer]. SURGEON: Usha Yee M.D. HEALTH EDUCATION TEACHER: Dov Napier PA-C ANESTHESIA: Spinal. ESTIMATED BLOOD LOSS: 200 mL. SPECIMENS: Femoral head. COMPLICATIONS: None. DESCRIPTION OF OPERATION: Antibiotics were given intravenously preoperatively and a successful spinal anesthetic was induced. He was placed in a lateral decubitus position, down leg well padded especially the peroneal nerve, left hip upper most, Valentino hip positioner was utilized, axillary roll ws utilized. The left hip area was carefully prepped and draped in the usual sterile fashion. Then after appropriate time out, a longitudinal incision was made for a direct anterolateral approach to the hip. Bovie cautery was used to coagulate crossing vessels, dividing the tensor fascia in line with the skin incision. Then the gluteus medius was split in the anterior one-third and posterior two-third junction, and we carefully dissected the medius minimus and anterior hip capsule off the proximal femur as we externally rotated the hip and eventually dislocated the hip and placed in a leg bag anteriorly. He had a very large rim osteophyte. A starter reamer was placed in the piriformis fossa followed by the canal finding reamer, then the lateralizing reamer and then we reamed up to a size 7 initially, broached up to a size 7, calcar planed and then exposed the acetabulum. We began reaming sequentially beginning at 47 and up to 57. The trial 58 fit somewhat snuggly, but not quite, but I felt the GRIPTION cup would likely hold given that we used a 54 on the opposite side, it was felt that the size 58 should fit. We then called for the #58 GRIPTION cup and it was inserted and there was not adequate fixation enough that I would trust the fixation, thus I elected to upsize to a 60, thus a reamed up to 58 and then a 59 and then a trial 60 fit tightly and then I elected to go with a 60. The real 60 cup was then inserted. After copiously irrigating out the acetabulum, using the extramedullary alignment jig to estimate our abduction and version. A single screw was placed superiorly measuring by 20 mm. After we irrigated and placed the real 60 neutral liner by 40 mm and then we placed the #7 broach after irrigating out the femoral canal and actually the 7 broach seated about 4 mm into the femoral canal, thus I elected to upsize to a size 8. The #8 reamer was placed, then the #8 broach placed and then we trialed. We first trial with a +5 standard offset and the hip was actually very tight, but very stable to flexion, internal rotation, extension and external rotation. There was a little bit of an impingement posteriorly at extreme extension and external rotation, thus I did trial the high offset stem, but it made really minimal difference and it actually tightened the soft tissues to much. Thus I elected ultimately after trialing to go with a standard 1.5 sized neck by 40 mm using the standard offset #8 Culebra stem. The trial broach was removed and copiously irrigated out the femoral canal, as we did several times throughout the operation, then inserted the real #8 Culebra stem, dried the trunnion. We did trial one more time with a +5, but it was to tight, thus the 1.5 neck length was decided upon ultimately. The 1.5 x 40 mm head was then inserted and then the hip reduced after irrigating copiously. We then closed the anterior hip capsule and gluteus minimus back anatomically with interrupted #1 PDS sutures. The gluteus medius was repaired back anatomically using several interrupted #1 PDS sutures. Irrigating between layers, closed the tensor fascia with a combination #1 PDS and a running #1 STRATAFIX and then irrigated again between layers, closed the deep subdermal tissues with interrupted #2-0 PDS sutures. The skin was closed with davion, covered by an Optifoam dry sterile bulky dressing. He was then turned supine and transferred to the recovery room in stable condition. There were no intraoperative complications. Mr. Dov Napier was critical to the success of this difficult surgery by helping with multiple manipulations of the soft tissues and dislocating and relocating the hip several times throughout the surgery, helped to close the wound, helped to prepare the patient, amongst many other tasks to allow me to perform the operation smoothly, efficiently and safely.
[2019-06-09] MEDS: CALCIUM CARBONATE 500 MG CHEW U/D PO SCH (14:07)
[2019-06-09] MEDS: TAMSULOSIN 0.4 MG CAP PO SCH (14:09)
[2019-06-09] MEDS: LACTOBACILLUS ACIDOPHILUS CAP (BACID) PO SCH (17:42)
[2019-06-09] MEDS: FINASTERIDE 5 MG TAB PO SCH (20:03)
[2019-06-09] MEDS: amLODIPine 5 MG TAB PO SCH (20:04)
[2019-06-10] MEDS: ceFAZolin SOD 2 GM in IV 1 EA IV SCH (01:59)
[2019-06-10 02:55] VITALS: BP 119/65
[2019-06-10] MEDS ORDERED: PERCOCET 5MG/325MG TAB PO PRN (06:15)
[2019-06-10] MEDS ORDERED: PERC5TAB12 PO (06:31)
[2019-06-10] MEDS ORDERED: XARE10TA PO (06:31)
[2019-06-10] MEDS: PERCOCET 5MG/325MG TAB PO PRN ×3 (06:32→20:18)
[2019-06-10 06:53] LABS: HEMATOCRIT 30.9 % (42.0-52.0); HEMOGLOBIN 10.2 g/dl (13.5-17.5); MEAN CORPUSCULAR HEMOGLOBIN 28.7 pg (27.0-33.0); PLATELET COUNT, AUTOMATED 130 10^3/uL (150-450); RED BLOOD COUNT 3.55 10^6/uL (4.30-6.10); WHITE BLOOD COUNT 6.3 10^3/uL (4.0-10.0)
[2019-06-10 07:16] LABS: BLOOD UREA NITROGEN 17 MG/DL (7-18); CALCIUM LEVEL 8.7 MG/DL (8.8-10.2); CARBON DIOXIDE LEVEL 29 MEQ/L (21-32); CHLORIDE LEVEL 106 MEQ/L (98-107); CREATININE FOR GFR 0.89 MG/DL (0.70-1.30); GLOMERULAR FILTRATION RATE > 60.0 (>35); GLUCOSE, FASTING 114 MG/DL (70-100); POTASSIUM SERUM 3.9 MEQ/L (3.5-5.1); SODIUM LEVEL 140 MEQ/L (136-145)
[2019-06-10] MEDS: MULTIVITAMINS/MINERALS THERAP 1 TAB PO SCH (08:17)
[2019-06-10] MEDS: OMEGA-3 1000MG CAPSULE PO SCH (08:17)
[2019-06-10] MEDS: TAMSULOSIN 0.4 MG CAP PO SCH (08:17)
[2019-06-10] MEDS: MOM 30ML SUSPENSION UDC PO SCH (08:17)
[2019-06-10] MEDS: CALCIUM CARBONATE 500 MG CHEW U/D PO SCH (08:17)
[2019-06-10] MEDS: LACTOBACILLUS ACIDOPHILUS CAP (BACID) PO SCH ×2 (08:17→17:30)
[2019-06-10] MEDS: MIRALAX *UNIT DOSE* 17GM PACKET PO SCH (08:17)
[2019-06-10] MEDS: VITAMIN D 1,000 INTERNATIONAL UNITS TABLET PO SCH (08:17)
[2019-06-10] MEDS: LISINOPRIL 40 MG TAB PO SCH (08:20)
[2019-06-10] MEDS: METOPROLOL SUCC (TopROL XL) 50MG **XL** TAB PO SCH (08:20)
[2019-06-10] MEDS ORDERED: PNEUMOCOCCAL VACCINE 0.5ML SYRINGE(90732) PNEUMOVAX 23 IM ONE (09:00)
[2019-06-10] MEDS ORDERED: MAGNESIUM OXIDE 400 MG TAB (MAG-OX) PO SCH (09:00)
--- NOTE | 2019-06-10 09:51 | IPNPDOC ---
Subjective Date Seen The patient was seen on 06/10/19. Subjective Chief Complaint/HPI s/p total hip. some pain at left hip. Constitutional: Denies: Chills ENT: Denies: Head Aches Skin: Denies: Rash, Jaundice Pulmonary: Denies: Dyspnea, Cough, Pleuritic Chest Pain Cardiovascular: Denies: Chest Pain, Palpitations, Orthopnea Gastrointestinal: Denies: Nausea, Abdominal Pain Genitourinary: Denies: Dysuria Hematologic: Denies: Bruising, Petecchia Endocrine: Denies: Polydipsia, Polyuria Musculoskeletal: Reports: Other Symptoms (expected left hip discomfort at surgery site) Neurological: Denies: Weakness, Change in speech Psych: Reports: Mood Normal; Denies: Anxiety Objective Physical Examination General Exam: Positive: Alert, Cooperative, No Acute Distress Eye Exam: Positive: PERRLA; Negative: Sclera icteric ENT Exam: Positive: Atraumatic Neck Exam: Positive: Supple; Negative: JVD, thyromegaly Chest Exam: Positive: Clear to auscultation, Normal air movement Heart Exam: Positive: Rate Normal; Negative: Murmurs Abdomen Exam: Positive: Normal bowel sounds, Soft; Negative: Tenderness Extremity Exam: Negative: Clubbing, Edema Skin Exam: Positive: Nl turgor and temperature; Negative: Rash Psych Exam: Positive: Mental status NL Assessment /Plan Problems (1) S/P total hip arthroplasty Status: Acute Response to Treatment: Stable Problem Text: management per Ortho. he is on DVT prophylaxis with Eliquis. Anticipate discharge tomorrow pending PT progress. (2) BPH (benign prostatic hyperplasia) Status: Chronic Response to Treatment: Stable Problem Text: continue finasteride and tamsulosin (3) HTN (hypertension) Status: Chronic Response to Treatment: Stable Problem Text: bp is low so will d/c ACEi for now, continue metoprolol and amlodipine with hold parameters as ordered. Plan/VTE VTE Prophylaxis Ordered?: Yes VS, I&O, 24H, Fishbone Vital Signs/I&O Vital Signs Date Time Temp Pulse Resp B/P (MAP) Pulse Ox O2 Delivery O2 Flow Rate FiO2 06/10/19 08:20 80 90/50 06/10/19 07:02 18 06/10/19 02:55 98.0 96 Nasal Cannula 2.0 I&O- Last 24 Hours up to 6 AM 06/10/19 06:00 Intake Total 2510 ml Output Total 1060 ml Balance 1450 ml Laboratory Data 24H LABS Laboratory Tests 2 06/10/19 06:01: Nucleated Red Blood Cells % (auto) 0.0, Anion Gap 5L, Glomerular Filtration Rate > 60.0, Calcium Level 8.7L, Magnesium Level 2.0 CBC/BMP Laboratory Tests 06/10/19 06:01 Héctor Mccormick MD Jun 10, 2019 09:51
[2019-06-10 10:11] VITALS: BP 88/50
[2019-06-10 14:00] VITALS: BP 146/76
[2019-06-10] MEDS: RIVAROXABAN 10 MG TAB (XARELTO) PO SCH (17:30)
[2019-06-10] MEDS: FINASTERIDE 5 MG TAB PO SCH (20:17)
[2019-06-10] MEDS: amLODIPine 5 MG TAB PO SCH (20:17)
[2019-06-10 20:37] VITALS: BP 105/59
[2019-06-11] VITALS (7 sets, daily range): BP systolic 90–146; BP diastolic 50–69
[2019-06-11] MEDS: PERCOCET 5MG/325MG TAB PO PRN (06:33)
[2019-06-11 06:37] LABS: HEMATOCRIT 27.6 % (42.0-52.0); HEMOGLOBIN 9.1 g/dl (13.5-17.5); MEAN CORPUSCULAR HEMOGLOBIN 28.4 pg (27.0-33.0); MEAN CORPUSCULAR VOLUME 86.3 fl (80.0-96.0); PLATELET COUNT, AUTOMATED 125 10^3/uL (150-450); WHITE BLOOD COUNT 7.3 10^3/uL (4.0-10.0)
[2019-06-11 06:59] LABS: BLOOD UREA NITROGEN 22 MG/DL (7-18); CARBON DIOXIDE LEVEL 29 MEQ/L (21-32); CHLORIDE LEVEL 105 MEQ/L (98-107); CREATININE FOR GFR 0.98 MG/DL (0.70-1.30); GLOMERULAR FILTRATION RATE > 60.0 (>35); GLUCOSE, FASTING 99 MG/DL (70-100); MAGNESIUM LEVEL 2.2 MG/DL (1.8-2.4); POTASSIUM SERUM 4.3 MEQ/L (3.5-5.1); SODIUM LEVEL 138 MEQ/L (136-145)
[2019-06-11] MEDS: LACTOBACILLUS ACIDOPHILUS CAP (BACID) PO SCH ×2 (08:49→17:30)
[2019-06-11] MEDS: MULTIVITAMINS/MINERALS THERAP 1 TAB PO SCH (08:49)
[2019-06-11] MEDS: OMEGA-3 1000MG CAPSULE PO SCH (08:49)
[2019-06-11] MEDS: CALCIUM CARBONATE 500 MG CHEW U/D PO SCH (08:49)
[2019-06-11] MEDS: MOM 30ML SUSPENSION UDC PO SCH (08:49)
[2019-06-11] MEDS: MIRALAX *UNIT DOSE* 17GM PACKET PO SCH (08:49)
[2019-06-11] MEDS: TAMSULOSIN 0.4 MG CAP PO SCH (08:49)
[2019-06-11] MEDS: METOPROLOL SUCC (TopROL XL) 50MG **XL** TAB PO SCH ×2 (08:52→09:00)
--- NOTE | 2019-06-11 11:55 | IPNPDOC ---
Subjective Date Seen The patient was seen on 06/11/19. Subjective Chief Complaint/HPI Sitting up in chair. Feels well. No lightheadedness. Took laxative in hopes of having BM prior to d/c Constitutional: Denies: Chills, Fever Pulmonary: Denies: Dyspnea, Cough Cardiovascular: Denies: Chest Pain, Palpitations, Orthopnea Gastrointestinal: Reports: Constipation; Denies: Nausea, Vomiting, Abdominal Pain, Diarrhea Objective Physical Examination General Exam: Positive: Alert, No Acute Distress Eye Exam: Positive: Sclera icteric Chest Exam: Positive: Clear to auscultation, Normal air movement Heart Exam: Positive: Rate Normal, Regular Rhythm; Negative: Murmurs Abdomen Exam: Positive: Normal bowel sounds, Soft; Negative: Tenderness Extremity Exam: Negative: Edema Psych Exam: Positive: Mental status NL Assessment /Plan Problems (1) S/P total hip arthroplasty Status: Acute Response to Treatment: Stable Problem Text: management per Ortho. he is on DVT prophylaxis with Eliquis. Anticipate discharge tomorrow pending PT progress. (2) BPH (benign prostatic hyperplasia) Status: Chronic Response to Treatment: Stable Problem Text: continue finasteride and tamsulosin (3) HTN (hypertension) Status: Chronic Response to Treatment: Stable Problem Text: BP remains low this am - Norvasc and Metoprolol held this am (EMR says Metoprolol was given, but per nurse, it was held this am) . AI held yesterday. BP rechecked now SBP = 120. Would recheck again prior to d/c and call Dr. Mccormick prior to d/c for instructions on what BP meds to take at home. - Charge nurse aware of plan b Plan/VTE VTE Prophylaxis Ordered?: Yes VS, I&O, 24H, Fishbone Vital Signs/I&O Vital Signs Date Time Temp Pulse Resp B/P (MAP) Pulse Ox O2 Delivery O2 Flow Rate FiO2 06/11/19 11:48 86 17 121/ (40) 06/11/19 06:33 Room Air 06/11/19 06:00 97.6 94 06/10/19 02:55 2.0 I&O- Last 24 Hours up to 6 AM 06/11/19 06:00 Intake Total 420 ml Output Total 770 ml Balance -350 ml Laboratory Data 24H LABS Laboratory Tests 2 06/11/19 05:31: Nucleated Red Blood Cells % (auto) 0.0, Anion Gap 4L, Glomerular Filtration Rate > 60.0, Calcium Level 9.0, Magnesium Level 2.2 CBC/BMP Laboratory Tests 06/11/19 05:31 VASYL CA PA-C Jun 11, 2019 11:55
[2019-06-11] MEDS ORDERED: NS 1,000 ML IV ONE (16:30)
[2019-06-11] MEDS ORDERED: traMADol 50 MG TAB PO PRN (17:00)
[2019-06-11] MEDS: RIVAROXABAN 10 MG TAB (XARELTO) PO SCH (17:30)
[2019-06-11] MEDS: FINASTERIDE 5 MG TAB PO SCH (20:11)
[2019-06-11] MEDS: ACETAMINOPHEN 500 MG TAB PO PRN (20:13)
[2019-06-12] MEDS ORDERED: XARE10TA PO (05:47)
[2019-06-12 06:00] VITALS: BP 143/78
[2019-06-12] MEDS ORDERED: ACET-683 PO (07:25)
[2019-06-12] MEDS ORDERED: ULTR50TA8 PO (07:25)
[2019-06-12] MEDS: CALCIUM CARBONATE 500 MG CHEW U/D PO SCH (08:29)
[2019-06-12] MEDS: ACETAMINOPHEN 500 MG TAB PO PRN (08:29)
[2019-06-12] MEDS: LACTOBACILLUS ACIDOPHILUS CAP (BACID) PO SCH (08:30)
[2019-06-12] MEDS: MULTIVITAMINS/MINERALS THERAP 1 TAB PO SCH (08:31)
[2019-06-12] MEDS: OMEGA-3 1000MG CAPSULE PO SCH (08:31)
[2019-06-12] MEDS: VITAMIN D 1,000 INTERNATIONAL UNITS TABLET PO SCH (08:31)
[2019-06-12] MEDS: TAMSULOSIN 0.4 MG CAP PO SCH (08:31)
[2019-06-12] MEDS: METOPROLOL SUCC (TopROL XL) 50MG **XL** TAB PO SCH (08:31)
[2019-06-12] MEDS: MIRALAX *UNIT DOSE* 17GM PACKET PO SCH (09:00)
[2019-06-12] MEDS: MOM 30ML SUSPENSION UDC PO SCH (09:00)
== END 2019-06-12 13:21 | disposition home health service (06) | DRG 470 ==
LOC: M OR 05:44 → M MS5PR 11:15
PROVIDERS: ADMIT Orthopaedic Surgery; ATTEND Orthopaedic Surgery
PROC: 0SRB02Z Replacement of Left Hip Joint with Metal on Polyethylene Synthetic Substitute, Open Approach (ICD-10-PCS; principal; 2019-06-09 07:30)
DX: M16.12 Unilateral primary osteoarthritis, left hip (principal); I45.2 Bifascicular block; I10 Essential (primary) hypertension; N40.0 Benign prostatic hyperplasia without lower urinary tract symptoms; E55.9 Vitamin D deficiency, unspecified; Z86.718 Personal history of other venous thrombosis and embolism; Z85.828 Personal history of other malignant neoplasm of skin; Z98.41 Cataract extraction status, right eye; Z98.42 Cataract extraction status, left eye; Z85.820 Personal history of malignant melanoma of skin; Z96.641 Presence of right artificial hip joint; J30.2 Other seasonal allergic rhinitis; Z79.82 Long term (current) use of aspirin; Z79.899 Other long term (current) drug therapy

== ENCOUNTER 2019-06-26 13:40 | Emergency (ER) | payer MEDICARE ==
[~2019-06-26] VITALS: Ht 165.1 cm; Wt 88.5 kg
[~2019-06-26 13:40] MED LIST changes: +ACET-683 PO; +ULTR50TA8 PO
[2019-06-26] MEDS ORDERED: AMLO5TAB6 PO (13:49)
[2019-06-26] MEDS ORDERED: LISI40TA PO (13:49)
[2019-06-26 14:43] LABS: BASO # 0.1 10^3/uL (0.0-0.2); BASO % 0.9 % (0.0-1.0); EOS # 0.3 10^3/uL (0.0-0.5); EOS % 5.1 % (0.0-3.0); HEMATOCRIT 32.9 % (42.0-52.0); HEMOGLOBIN 10.2 g/dl (13.5-17.5); LYMPH # 0.8 10^3/uL (1.5-5.0); LYMPH % 14.6 % (24.0-44.0); MEAN CORPUSCULAR HEMOGLOBIN 27.8 pg (27.0-33.0); MEAN CORPUSCULAR VOLUME 89.6 fl (80.0-96.0); MONO # 0.4 10^3/uL (0.0-0.8); NEUTROPHILS # 3.7 10^3/uL (1.5-8.5); PLATELET COUNT, AUTOMATED 284 10^3/uL (150-450); RED BLOOD COUNT 3.67 10^6/uL (4.30-6.10); WHITE BLOOD COUNT 5.3 10^3/uL (4.0-10.0)
[2019-06-26 15:30] VITALS: BP 160/90
== END 2019-06-26 15:42 | disposition home or self-care (01) ==
LOC: M ED 13:40
DX: M96.842 Postprocedural seroma of a musculoskeletal structure following a musculoskeletal system procedure (principal); J30.89 Other allergic rhinitis; Z79.899 Other long term (current) drug therapy; Z79.01 Long term (current) use of anticoagulants

== ENCOUNTER 2019-06-28 11:11 | Inpatient (IN) | payer MEDICARE ==
[~2019-06-28] VITALS: Ht 165.1 cm; Wt 83.6 kg
--- NOTE | 2019-06-28 14:28 | HPEPDOC ---
[facility] Medical History & Physical Date of Admission Jun 28, 2019 Date of Service: Jun 28, 2019 History and Physical CHIEF COMPLAINT: Left hip infection HISTORY OF PRESENT ILLNESS: 88-year-old male with past medical history of hypertension, hyperlipidemia, DVT, BPH and recent left hip replacement is sent by orthopedic surgeon for left hip infection. Patient underwent left hip replacement 3 weeks ago, reports having swelling of suture site with drainage. One week ago, followed up with orthopedic surgeon, was advised to monitor closely, continued having increased swelling and drainage, reevaluated by orthopedic surgeon today, being admitted for surgical drainage. Patient denies any fever, any pain with ambulation, any medication to range of motion of his lower extremities. He has no other associated symptoms at this time. Patient denies any short of breath, chest pain, nausea, vomiting, abdominal pain or diarrhea. Patient does report left lower extremity edema, persistent since surgery, reports 100% compliance with Xarelto, has history of postop right lower extremity DVT. 10 point review of system was negative except for above PAST MEDICAL HISTORY: 1. Hypertension. 2. Hyperlipidemia. 3. BPH. 4. DVT 5. Osteoarthritis PAST SURGICAL HISTORY: 1. 2 hernia repairs. 2. Left total hip arthroplasty. 3. Cataract surgery. SOCIAL HISTORY: Never smoker. Denies alcohol. Denies drug use FAMILY HISTORY: Noncontributory ALLERGIES: Please see below. HOME MEDICATIONS: Please see below. PHYSICAL EXAMINATION: VITAL SIGNS: Please see below. GENERAL: No distress HEENT: Normocephalic, atraumatic, moist mucous membranes NECK: Supple CARDIOVASCULAR EXAMINATION: S1, S2, no murmurs RESPIRATORY EXAMINATION: Clear to auscultation, no wheezing ABDOMINAL EXAMINATION: Soft, nontender, nondistended, positive bowel sounds EXTREMITIES: Left hip with swelling under surgical incision, no erythema or tenderness, currently draining fluid from incision site. SKIN: No rash NEUROLOGICAL EXAMINATION: Alert and oriented 3, no focal deficits PSYCHIATRIC EXAMINATION: Calm and cooperative LABORATORY DATA: See below. IMAGING: None MICROBIOLOGY: Please see below. ASSESSMENT: 88-year-old male with past medical history of BPH, hypertension and recent total hip arthroplasty, presents with surgical site infection. PLAN: 1. Left hip infection. Status post left total hip arthroplasty 3 weeks ago, currently draining fluid from incision site, going to OR today, hold off on antibiotics until after surgery, blood cultures ordered. Significant left lower extremity edema, given history of DVT, will order lower extremity Doppler. DVT prophylaxis with Xarelto 2. Hypertension. Continue home meds with hold parameters 3. BPH. Continue home meds DVT prophylaxis: Xarelto GI prophylaxis: Not needed Home Medications Scheduled Amlodipine Besylate (Amlodipine Besylate) 5 Mg Tablet, PO DAILY Biotin (Biotin) 5,000 Mcg Cap, 5,000 MCG PO DAILY Calcium Carbonate (Calcium) 500 Mg Tab.chew, 500 MG PO DAILY Carboxymethylcellulose Sodium (Thera Tears) 15 Ml Drops, 1 DROP OD DAILY Cranberry Fruit (Cranberry) 400 Mg Tablet, 400 MG PO DAILY Finasteride (Finasteride) 5 Mg Tab, 5 MG PO QAM Lactobacillus Acidophilus (Probiotic) 1 Cap Cap, 1 CAP PO QHS Lisinopril (Lisinopril) 40 Mg Tablet, PO QHS Magnesium Oxide (Magnesium) 400 Mg Capsule, 400 MG PO 3XW Metoprolol Succinate (Metoprolol Succinate) 50 Mg Tab, 50 MG PO DAILY Multivitamin (Multivitamins) 1 Each Capsule, 1 CAP PO DAILY Omeg3/Epa/Dha/Fish Oil/Flax/E (Thera Tears Nutrition Capsule) 1 Cap Cap, 1 CAP PO 3XW Rivaroxaban (Xarelto) 10 Mg Tablet, 10 MG PO DAILY Tamsulosin HCl (Flomax) 0.4 Mg Cap, 0.4 MG PO DAILY Turmeric/Turmeric Root Extract (Turmeric 450-50 mg Capsule) 1 Each Capsule, 500 MG PO DAILY Vitamin B Complex (Vitamin B Complex) 1 Each Tablet, 1 TAB PO DAILY Vitamin D (Vitamin D3) 1,000 Unit Tablet, 2,000 UNITS PO Q2D Scheduled PRN Acetaminophen (Acetaminophen) 500 Mg Tablet, 1,000 MG PO Q8HP PRN for NECK PAIN Tramadol HCl (Ultram) 50 Mg Tablet, 1 TAB PO Q4HP PRN for pain Allergies Coded Allergies: ENVIROMENTAL (Verified Allergy, Unknown, 06/08/19) A-FIB/CHADSVASC A-FIB History Current/History of A-Fib/PAF?: No ANGELA MALONEY MD Jun 28, 2019 14:28
[2019-06-28] MEDS ORDERED: D-10TAB2 PO (14:33)
[2019-06-28] MEDS ORDERED: AMLO5TAB6 PO (14:33)
[2019-06-28] MEDS ORDERED: ACET-683 PO (14:33)
[2019-06-28] MEDS ORDERED: CRAN400C PO (14:33)
[2019-06-28] MEDS ORDERED: TRAM50TA2 PO (14:33)
[2019-06-28] MEDS ORDERED: METO1TAB7 PO (14:33)
[2019-06-28] MEDS ORDERED: FINA5TAB2 PO (14:33)
[2019-06-28] MEDS ORDERED: XARE10TA PO (14:33)
[2019-06-28] MEDS ORDERED: LISI40TA PO (14:33)
[2019-06-28] MEDS ORDERED: FLOM0.4C39 PO (14:33)
[2019-06-28 15:23] LABS: HEMATOCRIT 34.9 % (42.0-52.0); HEMOGLOBIN 10.9 g/dl (13.5-17.5); MEAN CORPUSCULAR HGB CONC 31.2 g/dl (32.0-36.5); MEAN CORPUSCULAR VOLUME 89.7 fl (80.0-96.0); PLATELET COUNT, AUTOMATED 285 10^3/uL (150-450); RED BLOOD COUNT 3.89 10^6/uL (4.30-6.10); WHITE BLOOD COUNT 4.8 10^3/uL (4.0-10.0)
[2019-06-28 15:33] LABS: INR 1.3; PROTHROMBIN TIME 15.9 SECONDS (11.8-14.0)
[2019-06-28 15:34] LABS: PARTIAL THROMBOPLASTIN TIME 32.1 SECONDS (25.0-38.4)
[2019-06-28 15:39] LABS: ALBUMIN 3.5 GM/DL (3.2-5.2); ALT/SGPT 25 U/L (12-78); BILIRUBIN,TOTAL 0.5 MG/DL (0.2-1.0); BLOOD UREA NITROGEN 9 MG/DL (7-18); CALCIUM LEVEL 10.2 MG/DL (8.8-10.2); CARBON DIOXIDE LEVEL 30 MEQ/L (21-32); CHLORIDE LEVEL 108 MEQ/L (98-107); CREATININE FOR GFR 0.88 MG/DL (0.70-1.30); GLOMERULAR FILTRATION RATE > 60.0 (>35); GLUCOSE, FASTING 95 MG/DL (70-100); POTASSIUM SERUM 4.1 MEQ/L (3.5-5.1); SODIUM LEVEL 140 MEQ/L (136-145); TOTAL PROTEIN 6.9 GM/DL (6.4-8.2)
[2019-06-28 16:00] VITALS: BP 176/76
[2019-06-28 16:05] LABS: ERYTHROCYTE SEDIMENTATION RATE 19 mm/hr (0-20)
--- NOTE | 2019-06-28 16:13 | REP ---
Duplex extremity venous ultrasound: Bilateral lower extremities. History: Lower extremity edema, recent surgery. Rule out DVT. Findings: The deep veins are anechoic and fully compressible from the groin to the popliteal fossa in the left and right lower extremity. Color flow imaging is homogeneous. Spectral Doppler interrogation demonstrates intact respiratory variation in flow and normal manual augmentation of flow. There is no evidence of deep vein thrombosis. Impression: Negative bilateral lower extremity duplex venous ultrasound. No evidence of deep vein thrombosis. Electronically Signed by Kirby Rachel MD 06/28/2019 04:05 P
[2019-06-28] MEDS ORDERED: MIDAZOLAM INJ 2 MG/2 ML VIAL (J2250) As Ordered ONE (16:43)
[2019-06-28] MEDS ORDERED: LIDOCAINE 2% INJ 100 MG/5 ML SDV (FOR ANES.) As Ordered ONE (16:43)
[2019-06-28] MEDS ORDERED: PROPOFOL 200 MG/20 ML VIAL As Ordered ONE (16:43)
[2019-06-28] MEDS ORDERED: fentaNYL 250 MCG/5 ML INJECTION (J3010) As Ordered ONE (16:43)
[2019-06-28] MEDS ORDERED: ceFAZolin 1GM INJ (J0690 PER 500MG) As Ordered ONE ×2 (16:59→18:28)
[2019-06-28] MEDS ORDERED: ROCURONIUM BROMIDE 50 MG/5 ML VIAL As Ordered ONE (17:08)
[2019-06-28] MEDS ORDERED: TOBRAMYCIN SULF 1.2 GM VIAL As Ordered ONE (17:26)
[2019-06-28] MEDS ORDERED: VANCOMYCIN 1000 MG/20 ML VIAL (J3370) As Ordered ONE ×2 (17:27→18:07)
[2019-06-28 17:35] LABS: C REACTIVE PROTEIN QUANTITATIV 0.32 MG/DL (0.00-0.30)
[2019-06-28] MEDS ORDERED: ESMOLOL INJ 100MG/10ML VIAL As Ordered ONE (17:41)
[2019-06-28] MEDS ORDERED: LABETALOL HCL 100 MG/20 ML VIAL As Ordered ONE (17:50)
[2019-06-28] MEDS ORDERED: METOCLOPRAMIDE INJ 10MG/2ML VIAL (J2765) As Ordered ONE (17:58)
[2019-06-28] MEDS ORDERED: RIVAROXABAN 10 MG TAB (XARELTO) PO SCH (18:00)
[2019-06-28] MEDS ORDERED: NEOSTIGMINE 10 MG/10 ML VIAL (J2710) As Ordered ONE ×2 (18:12→18:13)
[2019-06-28] MEDS ORDERED: ONDANSETRON 4MG/2ML VIAL (J2405) As Ordered ONE ×2 (18:12→20:13)
[2019-06-28] MEDS ORDERED: GLYCOPYRROLATE INJ 0.2 MG/ML 2 ML VIAL As Ordered ONE (18:12)
--- NOTE | 2019-06-28 18:48 | HPE ---
DATE OF ADMISSION: 06/28/2019 REASON FOR ADMISSION: Draining left hip wound. HISTORY OF PRESENT ILLNESS: 88-year-old male who is 20 days after a left total hip arthroplasty who presented to the emergency room 2 days ago with some pinpoint drainage with serous colored fluid with some pink staining around his left hip wound. He presented to the office this morning and I was called to see him for this problem. He has not been having any excessive pain. He has been doing very well from his hip replacement. He has not been having any fevers or chills or other difficulties. His davion were actually removed approximately 5 or 6 days before this drainage started. In the office, it was felt that it would be best and safest to treat with fairly aggressive irrigation, debridement, exploration of the wound and if it looks as if this fluid is more than superficial then consider doing a deep hip wound irrigation, debridement and possible exchange of the polyethylene femoral head and possible placement of antibiotic beads if the wound looks suspiciously infected. He has a past medical history of high blood pressure and prostatic hypertrophy, vitamin D deficiency, history of a deep vein thrombosis (DVT) and a right bundle branch block. MEDICATIONS: At home include: - baby aspirin - tamsulosin - metoprolol - finasteride - Lisinopril - amlodipine - vitamin D - tumeric - vitamin B - fish oil - probiotic capsules ALLERGIES: No known drug allergies. SURGICAL HISTORY: He has had a transurethral prostatectomy, bilateral cataracts, melanoma excision, colonoscopy, hernias, right total hip replacement, and now a left total hip replacement recently. FAMILY HISTORY: Positive for diabetes, high blood pressure and cancer. SOCIAL HISTORY: He does not smoke or drink alcohol excessively. REVIEW OF SYSTEMS: Otherwise unremarkable. He is doing well at home with his who cares for him. He has been ambulating with his walker. PHYSICAL EXAMINATION: In the office and in the hospital here he has been afebrile. Blood pressure 176/76, oxygen saturation 99% on room air. HEENT: Examination is benign. LUNGS: Clear. HEART: Regular rate and rhythm. ABDOMEN: Nontender. EXTREMITIES: Left hip wound has ballotable seroma, some mild erythema distally and a small amount of serous type of fluid draining on to the dressing. Distally, he is neurovascularly intact. There is some mild pitting edema distally, consistent with recent hip surgery. LABORATORY DATA: He had a sed rate of 19 and a C-reactive protein presently pending. Pro time was 15.9, INR 1.3. White count was 4.8, hematocrit 34.9, platelets 285. IMPRESSION: 1. Draining left hip wound after hip replacement, question whether or not there is infection or not but recommend fairly aggressive irrigation, debridement and exploration of possible polyethylene and femoral head exchange and antibiotic spacer placement. Possible wound Vac also afterward. I discussed this with his and the patient in detail in the office earlier and they understand. He has been nothing by mouth for several hours. The operating room and we plan to proceed as outlined. Risks were discussed in the office. He did sign a consent earlier today.
[2019-06-28] MEDS ORDERED: ePHEDrine SULFATE 25 MG/5 ML(5MG/ML) SYRINGE As Ordered ONE (19:16)
[2019-06-28] MEDS ORDERED: PERCOCET 5MG/325MG TAB As Ordered ONE (20:13)
[2019-06-28] MEDS ORDERED: fentaNYL 100 MCG/2 ML INJECTION (J3010) IV PRN (20:15)
[2019-06-28] MEDS ORDERED: ONDANSETRON 4MG/2ML VIAL (J2405) IV PRN (20:15)
[2019-06-28] MEDS ORDERED: HYDROMORPHONE HCL 0.5 MG/ 0.5 ML SYRINGE (J1170 PER 1) IV PRN (20:15)
[2019-06-28] MEDS ORDERED: PERCOCET 5MG/325MG TAB PO PRN (20:30)
--- NOTE | 2019-06-28 20:36 | RO ---
DATE OF PROCEDURE: 06/28/2019 PREPROCEDURE DIAGNOSIS: Left hip wound drainage. POSTPROCEDURE DIAGNOSIS: Left hip wound infection with dehiscence. PROCEDURE: 1. Left hip irrigation and debridement. 2. Left hip polyethylene and femoral head exchange. 3. Left hip insertion of antibiotic dissolvable beads. 4. Left hip wound VAC application. SURGEON: Dr. Usha Yee INSPECTOR AND UNLOADER: None. ANESTHESIA: General endotracheal anesthesia. COMPLICATIONS: None. ESTIMATED BLOOD LOSS: 200 mL. SPECIMENS: 1. Seromatous fluid aerobic and anaerobic, Gram stain culture and sensitivity. 2. Soft tissue hematoma material Gram stain culture and sensitivity, aerobically and anaerobically. DESCRIPTION OF PROCEDURE: He was taken to the operating room where general endotracheal tube anesthetic was established. Then, he was placed in the lateral decubitus position, down leg well padded, especially peroneal nerve, and axillary roll was utilized. Left hip area was then carefully prepped and draped in the usual sterile fashion, and after appropriate time out, the incision was opened. There was a large amount of serosanguineous seromatous fluid that evacuated from the subcutaneous tissue. However, underneath this, you could clearly see that the tensor fascia had dehisced and part of the abductors had also dehisced, and basically this seromatous material did communicate down into the hip joint. The tensor fascia was divided a bit more proximally, so I could get adequate exposure. I then released the partially healing gluteus medius from the greater trochanter, exposing underlying hip, then dislocated it. I removed the femoral head, and then eventually I was able to manipulate the trunnion of the femoral stem such that I could get the polyethylene cup remover device on the cup, the polyethylene was removed. At this point, then, I copiously irrigated out the hip joint using a combination of rongeur and pulsatile lavage irrigant solution, trying to remove any remnant of hematoma and necrotic-type material. While I was doing this, my assistant county attorney mixed the antibiotic beads on the back table with the tobramycin and the vancomycin per the protocol. A total of 6 liters of antibiotic irrigant solution was instilled. When I felt that everything was cleansed, including curetting around the proximal portion of the femoral stem and curetting around the deep portion of the capsule around the acetabulum, I then reinserted the new 40 mm polyethylene, neutral and then I cleansed the trunnion of the femoral stem and then inserted another 40 mm x 1.5 neck length femoral head, then reduced the hip. The antibiotic beads were then placed deep within the hip capsule. I then closed the gluteus minimus and gluteus medius back anatomically as best as possible using interrupted #1 PDS sutures, irrigating between layers. I then laid a drain superficial to the gluteus medius layer but deep to the tensor fascial layer, and then sprinkled vancomycin powder into this layer as well. Then, I closed the tensor fascia with interrupted #1 PDS sutures and then closed the deep subdermal tissues with interrupted #2-0 PDS sutures. The drain was pulled out distally from underneath the tensor fascia. Then, the skin was closed with davion, then covered with Adaptic, and then a wound VAC applied to help evacuate any remaining serous fluid from the superficial tissues. The wound VAC was applied and had a nice seal. He was then awakened from general endotracheal tube anesthesia after having tolerated the procedure well, then turned supine and transferred to his bed in stable condition, then to the recovery room. There were no intraoperative complications.
[2019-06-28 20:45] VITALS: BP 119/53
[2019-06-28] MEDS: HYDROMORPHONE HCL 0.5 MG/ 0.5 ML SYRINGE (J1170 PER 1) IV PRN (21:12)
[2019-06-28 21:15] VITALS: BP 102/50
[2019-06-28 22:15] VITALS: BP 108/52
[2019-06-28 23:15] VITALS: BP 109/52
[2019-06-29 00:15] VITALS: BP 109/53
[2019-06-29 01:15] VITALS: BP 108/53
[2019-06-29 05:15] VITALS: BP 111/58
[2019-06-29] MEDS: VANCOMYCIN HCL 1,000 MG, VIAL MATE ADAPTER 1 EACH in D5W 250 ML IV SCH ×2 (06:36→18:24)
[2019-06-29] MEDS: HYDROMORPHONE HCL 0.5 MG/ 0.5 ML SYRINGE (J1170 PER 1) IV PRN ×3 (06:37→14:18)
[2019-06-29 06:54] LABS: HEMATOCRIT 30.7 % (42.0-52.0); HEMOGLOBIN 9.7 g/dl (13.5-17.5); MEAN CORPUSCULAR HEMOGLOBIN 28.4 pg (27.0-33.0); MEAN CORPUSCULAR HGB CONC 31.6 g/dl (32.0-36.5); PLATELET COUNT, AUTOMATED 258 10^3/uL (150-450); RED BLOOD COUNT 3.41 10^6/uL (4.30-6.10)
[2019-06-29 07:13] LABS: ERYTHROCYTE SEDIMENTATION RATE 17 mm/hr (0-20)
[2019-06-29 07:21] LABS: BLOOD UREA NITROGEN 11 MG/DL (7-18); C REACTIVE PROTEIN QUANTITATIV 1.24 MG/DL (0.00-0.30); CALCIUM LEVEL 8.9 MG/DL (8.8-10.2); CARBON DIOXIDE LEVEL 27 MEQ/L (21-32); CHLORIDE LEVEL 104 MEQ/L (98-107); CREATININE FOR GFR 1.05 MG/DL (0.70-1.30); GLOMERULAR FILTRATION RATE > 60.0 (>35); GLUCOSE, FASTING 120 MG/DL (70-100); MAGNESIUM LEVEL 1.9 MG/DL (1.8-2.4); PHOSPHORUS LEVEL 2.9 MG/DL (2.5-4.9); POTASSIUM SERUM 4.2 MEQ/L (3.5-5.1); SODIUM LEVEL 138 MEQ/L (136-145)
[2019-06-29 09:07] LABS: VANCOMYCIN RANDOM 7.9 UG/ML
--- NOTE | 2019-06-29 09:21 | IPNPDOC ---
Subjective Date Seen The patient was seen on 06/29/19. Subjective Chief Complaint/HPI s/p surgery for infection in hip. Constitutional: Denies: Chills, Fever, Night Sweats ENT: Denies: Head Aches Pulmonary: Denies: Dyspnea, Cough Cardiovascular: Denies: Chest Pain, Orthopnea Gastrointestinal: Denies: Nausea, Abdominal Pain Genitourinary: Denies: Dysuria Endocrine: Denies: Polydipsia Neurological: Denies: Weakness, Numbness Psych: Reports: Mood Normal; Denies: Anxiety Objective Physical Examination General Exam: Positive: Alert, Cooperative Eye Exam: Positive: EOMI; Negative: Sclera icteric ENT Exam: Positive: Atraumatic Neck Exam: Positive: Supple; Negative: Lymphadenopathy Chest Exam: Positive: Clear to auscultation; Negative: Rales, Wheezing Heart Exam: Positive: Rate Normal, Regular Rhythm Abdomen Exam: Positive: Normal bowel sounds; Negative: Tenderness Extremity Exam: Positive: Other (wound vac in place left) Skin Exam: Positive: Nl turgor and temperature Psych Exam: Positive: Mental status NL Assessment /Plan Problems (1) Left hip postoperative wound infection Status: Acute Response to Treatment: Stable Problem Text: s/p removal of infected hardware, cultures and replacement with antibiotics. Cultures pending. Consider ID consult. (2) HTN (hypertension) Status: Chronic Response to Treatment: Stable Problem Specific Plan: Monitor Clinically (3) BPH (benign prostatic hyperplasia) Status: Chronic Response to Treatment: Stable Problem Specific Plan: Monitor Clinically (4) DVT prophylaxis Response to Treatment: Stable Problem Text: pharmacologic prophylaxis on hold for now. has LIA/Seq's. Plan/VTE VTE Prophylaxis Ordered?: Yes VTE Exclusion Pharmacological: Bleeding Risk (will likely resume pharmacologic 24hours post op.) VS, I&O, 24H, Fishbone Vital Signs/I&O Vital Signs Date Time Temp Pulse Resp B/P (MAP) Pulse Ox O2 Delivery O2 Flow Rate FiO2 06/29/19 06:47 16 06/29/19 05:15 98.3 74 111/58 (75) 98 Room Air I&O- Last 24 Hours up to 6 AM 06/29/19 06:00 Intake Total 1290 ml Output Total 70 ml Balance 1220 ml Laboratory Data 24H LABS Laboratory Tests 2 06/28/19 15:04: Nucleated Red Blood Cells % (auto) 0.0, Erythrocyte Sedimentation Rate 19, Prothrombin Time 15.9H, Prothromb Time International Ratio 1.30, Activated Partial Thromboplast Time 32.1, Anion Gap 2L, Glomerular Filtration Rate > 60.0, Calcium Level 10.2, Total Bilirubin 0.5, Aspartate Amino Transf (AST/SGOT) 21, Alanine Aminotransferase (ALT/SGPT) 25, Alkaline Phosphatase 102, C-Reactive Protein, Quantitative 0.32H, Total Protein 6.9, Albumin 3.5, Albumin/Globulin Ratio 1.03 06/29/19 06:10: Nucleated Red Blood Cells % (auto) 0.0, Erythrocyte Sedimentation Rate 17, Anion Gap 7L, Glomerular Filtration Rate > 60.0, Calcium Level 8.9, C-Reactive Protein , Quantitative 1.24H, Phosphorus Level 2.9, Magnesium Level 1.9, Random Vancomycin Level 7.9 CBC/BMP Laboratory Tests 06/28/19 15:04 06/29/19 06:10 Microbiology Microbiology 06/28/19 Gram Stain, Received Pending 06/28/19 Surgical Biopsy Culture, Received Pending 06/28/19 Gram Stain, Received Pending 06/28/19 Wound Culture, Received Pending 06/28/19 Anaerobic Culture, Received Pending 06/28/19 Blood Culture, Received Pending Héctor Mccormick MD Jun 29, 2019 09:21
--- NOTE | 2019-06-29 10:24 | PHACANCOPD ---
PHARMACY VANCOMYCIN DOSING Pt Demographics Demographics Patient Age:88 , Weight:83.630 , Gender: male Adjusted Body Weight Date: 06/29/19, Adjusted Body Weight: Kg Events Past 24 Hours Events Past 24 Hours: NO: Dialysis, Diuretic Therapy, Change in CrCl, Fever, Elevation in WBC, Pending Diagnostics, Pending Procedures, Other Vancomycin Vancomycin Target Ranges: 15-20 mcg/ml Vancomycin Load Y/N: No Load Dose Date Time Vancomycin Load Dose: Date: Time: Vancomycin Dose Date: 06/29/19. Current Vancomycin Dose: Intermittent Dosing?: No Labs Labs Vital Signs Label Value Date Time Patient Temperature 98.2 degrees F 06/28/19 2215 Temperature Source Oral 06/28/19 221 Patient Temperature 98.0 degrees F 06/28/192114 Temperature Source Oral 06/28/19 211 Patient Temperature 98.6 degrees F 06/29/19 0115 Temperature Source Oral 06/29/19 0115 Patient Temperature 98.3 degrees F 06/29/19 0515 Temperature Source Oral 06/29/19 0515 Item Value Date Time White Blood Count 8.0 10^3/uL 06/29/19 0610 White Blood Count 4.8 10^3/uL 06/28/19 1504 Creatinine 1.05 MG/DL 06/29/19 0610 Creatinine 0.88 MG/DL 06/28/19 1504 C-Reactive Protein, Quantitative 1.24 MG/DL H 06/29/19 0610 C-Reactive Protein, Quantitative 0.32 MG/DL H 06/28/19 1504 Random Vancomycin Level 7.9 UG/ML 06/29/19 0610 Micro Microbiology 06/28/19 Gram Stain, Received Pending 06/28/19 Surgical Biopsy Culture, Received Pending 06/28/19 Gram Stain - Final, Resulted 06/28/19 Wound Culture, Resulted Pending 06/28/19 Anaerobic Culture, Resulted Pending 06/28/19 Blood Culture, Received Pending Creatinine Clearance Date:06/29/19. Creatinine Clearance: . Assessment and Plan Maintaining Current Dose?: Yes Reason for dose change: No Dose Change Pharmacist Note Pharmacist Note Date: 06/29/19. 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 The wound was rinsed with an antibiotic wash and antibiotic beads were placed. It is unclear whether the patient received any pre-op or intra-op IV antibiotics. A random as drawn this morning at 0610 and resulted at 7.9mcg/ml. I am going to continue the current dose of Vanco 1G IV Q12H and will schedule a trough for tomorrow morning. Dr. Ceja has been consulted. We will continue to monitor and adjust dose as needed. NALDO MARTINEZ PHARMACY Jun 29, 2019 10:24
[2019-06-29 14:00] VITALS: BP 139/72
[2019-06-29] MEDS: RIVAROXABAN 10 MG TAB (XARELTO) PO SCH (17:09)
[2019-06-29] MEDS: cefTRIAXone SOD 2 GM in D5W MINI-BAG PLUS 50 ML IV SCH (17:09)
--- NOTE | 2019-06-29 18:14 | CR ---
DATE OF CONSULTATION: 06/29/2019 REASON FOR CONSULTATION: Left prosthetic joint infection. ATTENDING PHYSICIAN: Dr. Ceja HISTORY OF PRESENT ILLNESS: Mr. Sotomayor is an 88-year-old male who had a left total hip replacement approximately 20 days ago. Patient stated that after his surgery he developed swelling around his suture site. The patient stated that he had his davion removed approximately 1 week ago and had noticed some drainage coming from his wound. He stated that the drainage was coming from a pin-sized hole located in the middle of the wound site. The drainage was clear with some red tint to it. Patient stated that he presented to the orthopedic office, in which he was evaluated and planned for debridement and antibiotic-coated bead placement. The patient states that he has had no fevers or chills. He denies any nausea or vomiting. He states that he has felt otherwise well. His only complaint is left-sided hip pain as well as serosanguineous drainage from the site. Patient was taken to surgery yesterday for a debridement with retained prosthesis. He had vancomycin-coated antibiotic beads placed as well as a wound vacuum-assisted closure (VAC) placed as well. The patient currently has wound cultures pending, including both aerobic and anaerobic cultures. The patient has had negative blood cultures. He has remained afebrile and without an elevated white blood cell count. Today the patient currently has no complaints besides some mild pain in his left hip. PAST MEDICAL HISTORY: 1. Hypertension. 2. Hyperlipidemia. 3. Benign prostatic hyperplasia. 4. History of deep vein thrombosis. 5. Osteoarthritis. PAST SURGICAL HISTORY: 1. Hernia repairs times two. 2. Transurethral resection of the prostate. 3. Bilateral cataract removal. 4. Melanoma excision. 5. Right total hip replacement. 6. Left total hip replacement. SOCIAL HISTORY: Patient currently lives with his in [place]. 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 He is a nonsmoker and does not use any alcohol. FAMILY HISTORY: Patient has a family history significant for diabetes mellitus, type 2, and hypertension. ALLERGIES: Patient has seasonal allergies but no known drug allergies. REVIEW OF SYSTEMS: CONSTITUTIONAL: Patient denies fevers, chills, or night sweats. He denies unintentional weightloss HEENT: Patient denies headaches, dysphagia, or odynophagia CARDIOVASCULAR: Patient denies chest pain, palpitations, or feelings of the heart racing RESPIRATORY: Patient denies shortness of breath. He denies coughing or wheezing ABDOMINAL: Patient denies nausea, vomiting, diarrhea, or constipation GENITOURINARY: Patient denies dysuria. He admits to history of urinary retention and enlarged prostate MUSCULOSKELETAL: Patient admits to osteoarthritis with chronic joint pain. He denies any muscle weakness EXTREMITIES: Patient denies any swelling in his legs. He admits to a left hip wound with drainage INTEGUMENTARY: Patient admits to a wound on his left hip from his surgery with clear drainage NEUROLOGICAL; Patient denies any changes in gait, speech, or vision PSYCHIATRIC: Patient denies any history of anxiety or depression PHYSICAL EXAMINATION: VITAL SIGNS: Temperature 98.3, pulse 83, respiratory rate 22, blood pressure 139/72, pulse oximetry 96% on room air. GENERAL: Patient is awake, alert, oriented. He did not appear in acute distress. He is sitting comfortably in his chair. He is accompanied by his . He is conversant. HEENT: Atraumatic, normocephalic. Eyes nonicteric. Trachea is midline. Mucous membranes are pink and moist. NECK: Neck is supple. There is no palpable cervical, axillary, or supraclavicular lymphadenopathy. CARDIOVASCULAR: Normal S1, S2, regular rate and rhythm. No clicks, rubs, or murmurs. RESPIRATORY: Clear to auscultation. Clear vesicular breath sounds bilaterally with good respiratory effort. There are no wheezes, rhonchi, or rales. There is symmetric chest expansion. ABDOMEN: Soft, nontender, nondistended. There is normoactive bowel sounds throughout. EXTREMITIES: Patient has a left hip surgical incision with wound VAC in place. There is mild to moderate swelling of his left hip. There is draining fluid from his incision site, which appears serosanguineous. There is full and equal pulse, bilateral upper and lower extremities. He has no edema in bilateral lower extremities. NEUROLOGIC: No focal neurological deficits. PSYCHIATRIC: Patient's mood and affect appear appropriate for situation. LABORATORY DATA: Hematology: White blood cells 8.0, hemoglobin 9.7, hematocrit 30.7, platelet count 258. Chemistries: Sodium 138, potassium 4.2, chloride 104, CO2 of 27, BUN 11, creatinine 1.05, fasting glucose 120.Calcium 8.9, phosphorus 2.9, magnesium 1.9. C-reactive protein 1.24. Microbiology: Wound culture Gram stain was negative for any cells. Aerobic and anaerobic cultures are currently pending. Blood cultures are negative. 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 Patient had a left total hip replacement approximately 20 days ago. He presented with serosanguineous drainage, suspected to be a possible prosthetic joint infection. Patient was taken to the operating room (OR) with debridement of his left hip. He had vancomycin-coated beads placed as well. Patient has remained afebrile and without a white count. Currently the patient is being treated empirically with vancomycin every 12 hours and ceftriaxone 2 grams every 24 hours. Will continue with current treatment pending culture data and de-escalation when culture data returns. The patient will need a total of 6 weeks of antibiotic therapy. Peripherally inserted central catheter (PICC) line will need to be placed for continued therapy as an outpatient. MTDD
--- NOTE | 2019-06-29 18:28 | REP ---
Left hip: Two views. History: Postop. Comparison left hip radiographs are from June 09, 2019. Findings: Lateral skin davion are seen. Left hip arthroplasty remains in position, unchanged. Vascular calcifications noted. There is a lateral surgical drain. There are radiopaque pellets distributed about the periarticular soft tissues at the arthroplasty site consistent with antibiotic infused pledgets. No bony destructive lesion is seen. Electronically Signed by Kirby Rachel MD 06/29/2019 06:56 P
[2019-06-29] MEDS: METOPROLOL SUCC (TopROL XL) 50MG **XL** TAB PO SCH (20:18)
[2019-06-29 22:01] VITALS: BP 107/50
[2019-06-30] VITALS (8 sets, daily range): BP systolic 115–156; BP diastolic 52–75
[2019-06-30] MEDS: VANCOMYCIN HCL 1,000 MG, VIAL MATE ADAPTER 1 EACH in D5W 250 ML IV SCH ×2 (05:41→18:13)
[2019-06-30 05:53] LABS: HEMOGLOBIN 8.6 g/dl (13.5-17.5); MEAN CORPUSCULAR HEMOGLOBIN 27.9 pg (27.0-33.0); MEAN CORPUSCULAR HGB CONC 31.9 g/dl (32.0-36.5); MEAN CORPUSCULAR VOLUME 87.7 fl (80.0-96.0); PLATELET COUNT, AUTOMATED 211 10^3/uL (150-450); RED BLOOD COUNT 3.08 10^6/uL (4.30-6.10); WHITE BLOOD COUNT 7.3 10^3/uL (4.0-10.0)
[2019-06-30 06:12] LABS: BLOOD UREA NITROGEN 13 MG/DL (7-18); C REACTIVE PROTEIN QUANTITATIV 8.68 MG/DL (0.00-0.30); CARBON DIOXIDE LEVEL 30 MEQ/L (21-32); CHLORIDE LEVEL 107 MEQ/L (98-107); CREATININE FOR GFR 1.09 MG/DL (0.70-1.30); GLOMERULAR FILTRATION RATE > 60.0 (>35); GLUCOSE, FASTING 99 MG/DL (70-100); POTASSIUM SERUM 4.1 MEQ/L (3.5-5.1); SODIUM LEVEL 140 MEQ/L (136-145); VANCOMYCIN LEVEL TROUGH 12.3 UG/ML (10.0-20.0)
--- NOTE | 2019-06-30 06:39 | PHACANCOPD ---
PHARMACY VANCOMYCIN DOSING Pt Demographics Demographics Patient Age:88 , Weight:83.630 , Gender: male Adjusted Body Weight Date: 06/29/19, Adjusted Body Weight: Kg Vancomycin Vancomycin Target Ranges: 15-20 mcg/ml Vancomycin Load Y/N: No Load Dose Date Time Vancomycin Load Dose: Date: Time: Vancomycin Dose Date: 06/29/19. Current Vancomycin Dose: Intermittent Dosing?: No Labs Micro Microbiology 06/28/19 Gram Stain, Received Pending 06/28/19 Surgical Biopsy Culture, Received Pending 06/28/19 Gram Stain - Final, Resulted 06/28/19 Wound Culture, Resulted Pending 06/28/19 Anaerobic Culture, Resulted Pending 06/28/19 Blood Culture - Preliminary, Resulted No growth after 24 hours . All specim... Creatinine Clearance Date:06/29/19. Creatinine Clearance: . Assessment and Plan Maintaining Current Dose?: Yes Reason for dose change: No Dose Change Pharmacist Note Pharmacist Note Date: 06/30/19. Pharmacist note:Vancomycin trough drawn this morning@5:17 report ed as 12.3. Patient SCR=1.09, calculated CRCL=57.1.Will maintain current regimen of Vancomycin 1 gram IV [id number] d/t patient age and will schedule another trough for tomorrow@1700. Wull continue to follow labs Date: 06/29/19. 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 The wound was rinsed with an antibiotic wash and antibiotic beads were placed. It is unclear whether the patient received any pre-op or intra-op IV antibiotics. A random as drawn this morning at 0610 and resulted at 7.9mcg/ml. I am going to continue the current dose of Vanco 1G IV Q12H and will schedule a trough for tomorrow morning. Dr. Ceja has been consulted. We will continue to monitor and adjust dose as needed. SUSAN MORALES PHARMACY Jun 30, 2019 06:39
[2019-06-30 07:32] LABS: ERYTHROCYTE SEDIMENTATION RATE 35 mm/hr (0-20)
--- NOTE | 2019-06-30 09:03 | IPNPDOC ---
Subjective Date Seen The patient was seen on 06/30/19. Subjective Chief Complaint/HPI comfortable and no complaints Constitutional: Denies: Chills ENT: Denies: Head Aches Pulmonary: Denies: Dyspnea Cardiovascular: Denies: Chest Pain, Palpitations, Orthopnea Gastrointestinal: Denies: Nausea, Abdominal Pain Genitourinary: Denies: Dysuria Neurological: Denies: Weakness, Numbness Objective Physical Examination General Exam: Positive: Alert, Cooperative Eye Exam: Positive: EOMI; Negative: Sclera icteric ENT Exam: Positive: Atraumatic Neck Exam: Positive: Supple; Negative: Lymphadenopathy Chest Exam: Positive: Clear to auscultation; Negative: Rales, Wheezing Heart Exam: Positive: Rate Normal, Regular Rhythm Abdomen Exam: Positive: Normal bowel sounds; Negative: Tenderness Extremity Exam: Positive: Other (wound vac in place left) Skin Exam: Positive: Nl turgor and temperature Psych Exam: Positive: Mental status NL Assessment /Plan Problems (1) Left hip postoperative wound infection Status: Acute Response to Treatment: Stable Problem Text: 06/30: reviewed ID note from yesterday. We are waiting for C&S results. If infection confirmed then move ahead with PICC. s/p removal of infected hardware, cultures and replacement with antibiotics. Cultures pending. Consider ID consult. (2) HTN (hypertension) Status: Chronic Response to Treatment: Stable Problem Specific Plan: Monitor Clinically Problem Text: stable. will stepwise resume other chronic meds when/if his pressure shows a need. (3) BPH (benign prostatic hyperplasia) Status: Chronic Response to Treatment: Stable Problem Specific Plan: Monitor Clinically Problem Text: resume Tamsulosin. (4) DVT prophylaxis Response to Treatment: Stable Problem Text: 06/30: Xarelto prophylaxis has been resumed. pharmacologic prophylaxis on hold for now. has LIA/Seq's. Plan/VTE VTE Prophylaxis Ordered?: Yes Plan Anticipated Discharge: Home, Home With Services VS, I&O, 24H, Fishbone Vital Signs/I&O Vital Signs Date Time Temp Pulse Resp B/P (MAP) Pulse Ox O2 Delivery O2 Flow Rate FiO2 06/30/19 08:52 156/75 (102) 95 06/30/19 06:00 98.4 74 18 Room Air I&O- Last 24 Hours up to 6 AM 06/30/19 06:00 Intake Total 2750 ml Output Total 4360 ml Balance -1610 ml Laboratory Data 24H LABS Laboratory Tests 2 06/30/19 05:17: Nucleated Red Blood Cells % (auto) 0.0, Erythrocyte Sedimentation Rate 35H, Anion Gap 3L, Glomerular Filtration Rate > 60.0, Calcium Level 9.0, C-Reactive Protein, Quantitative 8.68H, Vancomycin Level Trough 12.3 CBC/BMP Laboratory Tests 06/30/19 05:17 Microbiology Microbiology 06/28/19 Gram Stain, Received Pending 06/28/19 Surgical Biopsy Culture, Received Pending 06/28/19 Gram Stain - Final, Resulted 06/28/19 Wound Culture, Resulted Pending 06/28/19 Anaerobic Culture, Resulted Pending 06/28/19 Blood Culture - Preliminary, Resulted No growth after 24 hours . All specim... Héctor Mccormick MD Jun 30, 2019 09:03
[2019-06-30] MEDS: PERCOCET 5MG/325MG TAB PO PRN ×2 (09:10→15:26)
[2019-06-30] MEDS: SENOKOT S TAB PO SCH ×2 (09:17→20:36)
[2019-06-30] MEDS: MOM 30ML SUSPENSION UDC PO SCH (09:17)
[2019-06-30] MEDS: MIRALAX *UNIT DOSE* 17GM PACKET PO SCH (09:17)
[2019-06-30] MEDS: TAMSULOSIN 0.4 MG CAP PO SCH ×2 (09:17→20:36)
[2019-06-30] MEDS ORDERED: LIDOCAINE 1% MDV 20ML VIAL As Ordered ONE (13:46)
[2019-06-30] MEDS ORDERED: SODIUM CHLORIDE 0.9% INJ 10 ML SYR IV PRN (16:00)
[2019-06-30] MEDS: cefTRIAXone SOD 2 GM in D5W MINI-BAG PLUS 50 ML IV SCH (17:12)
--- NOTE | 2019-06-30 17:25 | REP ---
Procedure: PICC line insertion with Stephanie The procedure was performed under the direct supervision of Dr. Rachel. The risks and benefits of the procedure were explained to the patient and informed consent was obtained. The right brachial vein was localized using ultrasound guidance. The skin was prepped and draped in a sterile fashion. 2% lidocaine was used as a local anesthetic. Using ultrasound guidance the brachial vein was cannulated and a 0.018 guidewire was inserted and advanced to the SVC using fluoroscopic guidance. The needle was removed and a 4.5 Spanish dilator and peel-away sheath was inserted over the guide wire. A 4.5 Spanish single lumen catheter was cut to length of 40 cm. The dilator was removed and the catheter was inserted over the guide wire with the tip ending in the SVC. The peel-away sheath was removed and the catheter was flushed with heparinized saline as per Hospital protocol. The catheter was affixed to the skin and a sterile dressing was applied. The patient tolerated the procedure well and there were no immediate complications. 0.3 minutes of fluoro time was utilized for this procedure. Electronically Signed by JACEY Monzon 06/30/2019 04:18 P Electronically Signed by Kirby Rachel MD 06/30/2019 05:16 P
[2019-06-30] MEDS: SODIUM CHLORIDE 0.9% INJ 10 ML SYR IV SCH (18:13)
[2019-06-30] MEDS: RIVAROXABAN 10 MG TAB (XARELTO) PO SCH (18:13)
[2019-06-30] MEDS: METOPROLOL SUCC (TopROL XL) 50MG **XL** TAB PO SCH (20:36)
[2019-07-01] MEDS: VANCOMYCIN HCL 1,000 MG, VIAL MATE ADAPTER 1 EACH in D5W 250 ML IV SCH ×2 (05:04→17:24)
[2019-07-01] MEDS: SODIUM CHLORIDE 0.9% INJ 10 ML SYR IV SCH ×2 (05:04→17:23)
[2019-07-01 06:31] VITALS: BP 113/57
[2019-07-01 06:49] LABS: HEMATOCRIT 28.4 % (42.0-52.0); HEMOGLOBIN 8.9 g/dl (13.5-17.5); MEAN CORPUSCULAR HEMOGLOBIN 27.9 pg (27.0-33.0); MEAN CORPUSCULAR HGB CONC 31.3 g/dl (32.0-36.5); PLATELET COUNT, AUTOMATED 207 10^3/uL (150-450); RED BLOOD COUNT 3.19 10^6/uL (4.30-6.10); WHITE BLOOD COUNT 7.7 10^3/uL (4.0-10.0)
[2019-07-01 07:10] LABS: BLOOD UREA NITROGEN 17 MG/DL (7-18); C REACTIVE PROTEIN QUANTITATIV 9.74 MG/DL (0.00-0.30); CALCIUM LEVEL 9.7 MG/DL (8.8-10.2); CARBON DIOXIDE LEVEL 30 MEQ/L (21-32); CHLORIDE LEVEL 104 MEQ/L (98-107); CREATININE FOR GFR 1.19 MG/DL (0.70-1.30); GLOMERULAR FILTRATION RATE > 60.0 (>35); GLUCOSE, FASTING 121 MG/DL (70-100); POTASSIUM SERUM 4.3 MEQ/L (3.5-5.1); SODIUM LEVEL 138 MEQ/L (136-145)
[2019-07-01 07:32] LABS: ERYTHROCYTE SEDIMENTATION RATE 45 mm/hr (0-20)
[2019-07-01] MEDS: LISINOPRIL 20 MG TAB PO SCH ×2 (09:00→20:32)
[2019-07-01] MEDS ORDERED: LISINOPRIL 40 MG TAB PO SCH (09:00)
[2019-07-01] MEDS: MIRALAX *UNIT DOSE* 17GM PACKET PO SCH (09:46)
[2019-07-01] MEDS: TAMSULOSIN 0.4 MG CAP PO SCH ×2 (09:47→20:32)
[2019-07-01] MEDS: SENOKOT S TAB PO SCH ×2 (09:47→20:33)
[2019-07-01] MEDS: MOM 30ML SUSPENSION UDC PO SCH (09:48)
[2019-07-01] MEDS: PERCOCET 5MG/325MG TAB PO PRN ×2 (09:48→17:31)
[2019-07-01] MEDS: FINASTERIDE 5 MG TAB PO SCH (09:48)
--- NOTE | 2019-07-01 10:46 | IPNPDOC ---
Subjective Date Seen The patient was seen on 07/01/19. Subjective Chief Complaint/HPI I'm bored. no significant discomfort. ENT: Denies: Head Aches Pulmonary: Denies: Dyspnea Gastrointestinal: Denies: Nausea, Abdominal Pain Genitourinary: Reports: Other Symptoms (happy that he was able to void ); Denies: Dysuria Hematologic: Denies: Bruising, Bleeding Excessively Neurological: Denies: Weakness, Change in speech Psych: Reports: Mood Normal Objective Physical Examination General Exam: Positive: Alert, Cooperative Eye Exam: Positive: EOMI; Negative: Sclera icteric ENT Exam: Positive: Atraumatic Neck Exam: Positive: Supple; Negative: Lymphadenopathy Chest Exam: Positive: Clear to auscultation; Negative: Rales, Wheezing Heart Exam: Positive: Rate Normal, Regular Rhythm Abdomen Exam: Positive: Normal bowel sounds; Negative: Tenderness Extremity Exam: Positive: Other (wound vac in place left) Skin Exam: Positive: Nl turgor and temperature Psych Exam: Positive: Mental status NL Assessment /Plan Problems (1) Left hip postoperative wound infection Status: Acute Response to Treatment: Stable Problem Text: 07/01: no ID f/u note but I observe that PICC has been placed (cultures resulted this am, showing Coag neg staph, methicillin resistant and Corynebacteria in wound). Still on Vanc and Ceftriaxone 06/30: reviewed ID note from yesterday. We are waiting for C&S results. If infection confirmed then move ahead with PICC. s/p removal of infected hardware, cultures and replacement with antibiotics. Cultures pending. Consider ID consult. (2) HTN (hypertension) Status: Chronic Response to Treatment: Stable Problem Specific Plan: Monitor Clinically Problem Text: 07/01: will resume lisinopril at 20 bid since his pressure shows significant variability. stable. will stepwise resume other chronic meds when/if his pressure shows a need. (3) BPH (benign prostatic hyperplasia) Status: Chronic Response to Treatment: Stable Problem Specific Plan: Monitor Clinically Problem Text: 07/01: resume finasteride. resume Tamsulosin. (4) DVT prophylaxis Response to Treatment: Stable Problem Text: 06/30: Xarelto prophylaxis has been resumed. pharmacologic prophylaxis on hold for now. has LIA/Seq's. Plan/VTE VTE Prophylaxis Ordered?: Yes Plan Anticipated Discharge: Home, Home With Services VS, I&O, 24H, Fishbone Vital Signs/I&O Vital Signs Date Time Temp Pulse Resp B/P (MAP) Pulse Ox O2 Delivery O2 Flow Rate FiO2 07/01/19 09:48 18 Room Air 07/01/19 06:31 97.6 79 113/57 (75) 98 I&O- Last 24 Hours up to 6 AM 07/01/19 06:00 Intake Total 1300 ml Output Total 1870 ml Balance -570 ml Laboratory Data 24H LABS Laboratory Tests 2 07/01/19 06:38: Nucleated Red Blood Cells % (auto) 0.0, Erythrocyte Sedimentation Rate 45H, Anion Gap 4L, Glomerular Filtration Rate > 60.0, Calcium Level 9.7, C-Reactive Protein, Quantitative 9.74H CBC/BMP Laboratory Tests 07/01/19 06:38 Microbiology Microbiology 06/28/19 Gram Stain - Final, Complete 06/28/19 Surgical Biopsy Culture - Final, Complete Corynebacterium Species Staphylococcus Sp Coag Neg 06/28/19 Gram Stain - Final, Complete 06/28/19 Wound Culture - Final, Complete Staphylococcus Sp Coag Neg 06/28/19 Anaerobic Culture - Final, Complete 06/28/19 Blood Culture - Preliminary, Resulted No Growth after 48 hours. All Specime... Héctor Mccormick MD Jul 01, 2019 10:46
[2019-07-01 14:55] VITALS: BP 110/56
[2019-07-01] MEDS: RIVAROXABAN 10 MG TAB (XARELTO) PO SCH (17:23)
--- NOTE | 2019-07-01 18:12 | PHACANCOPD ---
PHARMACY VANCOMYCIN DOSING Pt Demographics Demographics Patient Age:88 , Weight:83.630 , Gender: male Adjusted Body Weight Date: 06/29/19, Adjusted Body Weight: Kg Events Past 24 Hours Events Past 24 Hours: YES: Change in CrCl; NO: Dialysis, Diuretic Therapy, Fever, Elevation in WBC, Pending Diagnostics, Pending Procedures, Other Vancomycin Vancomycin indication: prosthetic hip infection Vancomycin Target Ranges: 15-20 mcg/ml Vancomycin Load Y/N: No Load Dose Date Time Vancomycin Load Dose: Date: Time: Vancomycin Dose Date: 07/02/19. Current Vancomycin Dose: [1g IV q18h @10] Date: 06/29/19. Current Vancomycin Dose: [1g IV q12h] Intermittent Dosing?: No Labs Labs Item Value Date Time Vancomycin Level Trough 12.3 UG/ML 06/30/19 0517 Vancomycin Level Trough 19.2 UG/ML 07/01/19 1704 Creatinine 0.88 MG/DL 06/28/19 1504 Creatinine 1.05 MG/DL 06/29/19 0610 Creatinine 1.09 MG/DL 06/30/19 0517 Creatinine 1.19 MG/DL 07/01/19 0638 C-Reactive Protein, Quantitative 8.68 MG/DL H 06/30/19 0517 C-Reactive Protein, Quantitative 9.74 MG/DL H 07/01/19 0638 Micro Microbiology 06/28/19 Gram Stain - Final, Complete 06/28/19 Surgical Biopsy Culture - Final, Complete Corynebacterium Species Staphylococcus Sp Coag Neg 06/28/19 Gram Stain - Final, Complete 06/28/19 Wound Culture - Final, Complete Staphylococcus Sp Coag Neg 06/28/19 Anaerobic Culture - Final, Complete 06/28/19 Blood Culture - Preliminary, Resulted No Growth after 72 hours. All specime... Creatinine Clearance Date:07/01/19. Creatinine Clearance: [~38 ml/min]. Date:06/29/19. Creatinine Clearance: [~52 ml/min]. Assessment and Plan Maintaining Current Dose?: No Reason for dose change: Change in serum Cr Pharmacist Note Pharmacist Note Date: 07/01/19. Pharmacist note: repeat vancomycin trough this afternoon was significantly increased from yesterday morning at 19.2 mcg/ml. Trough was drawn on time ~45 min before the evening dose. Due to SCr continuing to trend up, I have decreased him from vancomycin 1g IV q12h to q18h to begin ~16 hours after his dose tonight. We will continue to monitor. Date: 06/30/19. Pharmacist note:Vancomycin trough drawn this morning@5:17 reported as 12.3. Patient SCR=1.09, calculated CRCL=57.1.Will maintain current regimen of Vancomycin 1 gram IV [id number] d/t patient age and will schedule another trough for tomorrow@1700. Wull continue to follow labs Date: 06/29/19. 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 The wound was rinsed with an antibiotic wash and antibiotic beads were placed. It is unclear whether the patient received any pre-op or intra-op IV antibiotics. A random as drawn this morning at 0610 and resulted at 7.9mcg/ml. I am going to continue the current dose of Vanco 1G IV Q12H and will schedule a trough for tomorrow morning. Dr. Ceja has been consulted. We will continue to monitor and adjust dose as needed. Ethan Manzanares Pharm.D. Jul 01, 2019 18:12
--- NOTE | 2019-07-01 19:13 | IPN ---
DATE: 07/01/2019 Mr. Sotomayor seems to be doing well. His is at the bedside and overwhelmed with his need for care with a wound vac and IV antibiotics. She was somewhat tearful. Patient denies any nausea, vomiting, diarrhea, abdominal pain, fever, or chills. He gets confused with Percocet. VITAL SIGNS: Temperature 98.4, pulse 79, respirations 16, blood pressure 110/56, Oxygen sat 97% on room air. Heart normal S1, S2. No murmurs, rubs or gallops. Lungs are clear no wheezes, rales, or rhonchi. Abdomen is soft and nontender and no hepatosplenomegaly. Extremities, left hip wound vac with a STANLEY drain and serosanguineous dressing. +1 ankle edema. LABS: White count 7.7, hemoglobin 8.9, hematocrit 28.4, platelets 207, sodium 138, potassium 4.3, chloride 104, bicarbonate 30, BUN 17, creatinine 1.19, glucose 121, calcium 9.7, CRP 9.74, left hip culture has stap coag negative on two different specimens and blood cultures were negative. Patient had a PICC line in the right arm. IMPRESSION: 1. 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 Patient has a wound vac in place. He will b e treated with 6 weeks of IV antibiotics followed by 6 weeks more of antibiotics. He will be treated with combination of IV vancomycin and rifampin. 2. DVT prophylaxis with Eliquis. There is a drug interaction between Eliquis and Rifampin. Decrease Eliquis dose by 50%. We will discuss with internal medicine whether they want to increase his dose of Eliquis to twice a day but the patient is pretty ambulatory. PLAN: Consult PFS for home IV antibiotics. Patient will be going home with IV vancomycin. His dose needs to be dosed once a day instead of every 18 hours. Rifampin 300 mg by mouth twice a day for 6 weeks, antibiotics have been prescribed and given to his nurse to call social work tomorrow for home IV antibiotics. He will need monitoring of his CBC, CMP, CRP, vancomycin trough weekly. He will go home with [facility] and home IV infusion. Tomorrow his wound vac will be changed and I will be present to see the wound.
[2019-07-01 20:31] VITALS: BP 141/67
[2019-07-01] MEDS: METOPROLOL SUCC (TopROL XL) 50MG **XL** TAB PO SCH (20:33)
[2019-07-01 22:33] VITALS: BP 138/65
[2019-07-02] MEDS: PERCOCET 5MG/325MG TAB PO PRN ×2 (05:16→10:01)
[2019-07-02] MEDS: SODIUM CHLORIDE 0.9% INJ 10 ML SYR IV SCH ×2 (05:17→18:08)
[2019-07-02 06:00] VITALS: BP 107/50
[2019-07-02 06:43] LABS: HEMATOCRIT 25.9 % (42.0-52.0); HEMOGLOBIN 8.4 g/dl (13.5-17.5); MEAN CORPUSCULAR HEMOGLOBIN 28.5 pg (27.0-33.0); MEAN CORPUSCULAR HGB CONC 32.4 g/dl (32.0-36.5); MEAN CORPUSCULAR VOLUME 87.8 fl (80.0-96.0); PLATELET COUNT, AUTOMATED 227 10^3/uL (150-450); RED BLOOD COUNT 2.95 10^6/uL (4.30-6.10); WHITE BLOOD COUNT 6.7 10^3/uL (4.0-10.0)
[2019-07-02 07:06] LABS: C REACTIVE PROTEIN QUANTITATIV 7.62 MG/DL (0.00-0.30); CALCIUM LEVEL 9.8 MG/DL (8.8-10.2); CREATININE FOR GFR 1.38 MG/DL (0.70-1.30); POTASSIUM SERUM 4.4 MEQ/L (3.5-5.1); VANCOMYCIN RANDOM 19.1 UG/ML
[2019-07-02 07:09] LABS: ERYTHROCYTE SEDIMENTATION RATE 46 mm/hr (0-20)
--- NOTE | 2019-07-02 07:23 | PHACANCOPD ---
PHARMACY VANCOMYCIN DOSING Pt Demographics Demographics Patient Age:88 , Weight:83.630 , Gender: male Adjusted Body Weight Date: 06/29/19, Adjusted Body Weight: Kg Events Past 24 Hours Events Past 24 Hours: YES: Change in CrCl; NO: Dialysis, Diuretic Therapy, Fever, Elevation in WBC, Pending Diagnostics, Pending Procedures, Other Vancomycin Vancomycin indication: prosthetic hip infection Vancomycin Target Ranges: 15-20 mcg/ml Vancomycin Load Y/N: No Load Dose Date Time Vancomycin Load Dose: Date: Time: Vancomycin Dose Date: 07/02/19. Current Vancomycin Dose: [1g IV q18h @10] Date: 06/29/19. Current Vancomycin Dose: [1g IV q12h] Intermittent Dosing?: No Labs Labs Item Value Date Time Glomerular Filtration Rate > 60.0 06/29/19 0610 White Blood Count 6.7 10^3/uL 07/02/19 0610 White Blood Count 7.7 10^3/uL 07/01/19 0638 White Blood Count 7.3 10^3/uL 06/30/19 0517 Creatinine 1.38 MG/DL H 07/02/19 0610 Creatinine 1.19 MG/DL 07/01/19 0638 Creatinine 1.09 MG/DL 06/30/19 0517 Random Vancomycin Level 19.1 UG/ML 07/02/19 0610 Vancomycin Level Trough 19.2 UG/ML 07/01/19 1704 Vancomycin Level Trough 12.3 UG/ML 06/30/19 0517 Micro Microbiology 06/28/19 Gram Stain - Final, Complete 06/28/19 Surgical Biopsy Culture - Final, Complete Corynebacterium Species Staphylococcus Sp Coag Neg 06/28/19 Gram Stain - Final, Complete 06/28/19 Wound Culture - Final, Complete Staphylococcus Sp Coag Neg 06/28/19 Anaerobic Culture - Final, Complete 06/28/19 Blood Culture - Preliminary, Resulted No Growth after 72 hours. All specime... Creatinine Clearance Date:07/01/19. Creatinine Clearance: [~38 ml/min]. Date:06/29/19. Creatinine Clearance: [~52 ml/min]. Assessment and Plan Maintaining Current Dose?: Yes Reason for dose change: No Dose Change Pharmacist Note Pharmacist Note 07/02/19: Random this AM drawn @0610 resulted at 19.1mcg/ml. The predicted trough would be 17.4mcg/ml. There is a significant increase in Scr today. The plan is to discharge the patient on Q24H Vancomycin. I have ordered another trough for tomorrow @0800. We will continue to monitor and adjust dose as needed. Date: 07/01/19. Pharmacist note: repeat vancomycin trough this afternoon was significantly increased from yesterday morning at 19.2 mcg/ml. Trough was drawn on time ~45 min before the evening dose. Due to SCr continuing to trend up, I have decreased him from vancomycin 1g IV q12h to q18h to begin ~16 hours after his dose tonight. We will continue to monitor. Date: 06/30/19. Pharmacist note:Vancomycin trough drawn this morning@5:17 reported as 12.3. Patient SCR=1.09, calculated CRCL=57.1.Will maintain current regimen of Vancomycin 1 gram IV [id number] d/t patient age and will schedule another trough for tomorrow@1700. Wull continue to follow labs Date: 06/29/19. 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 The wound was rinsed with an antibiotic wash and ant ibiotic beads were placed. It is unclear whether the patient received any pre-op or intra-op IV antibiotics. A random as drawn this morning at 0610 and resulted at 7.9mcg/ml. I am going to continue the current dose of Vanco 1G IV Q12H and will schedule a trough for tomorrow morning. Dr. Ceja has been consulted. We will continue to monitor and adjust dose as needed. NALDO MARTINEZ PHARMACY Jul 02, 2019 07:23
[2019-07-02] MEDS: TAMSULOSIN 0.4 MG CAP PO SCH ×2 (10:00→20:37)
[2019-07-02] MEDS: SENOKOT S TAB PO SCH ×2 (10:00→20:37)
[2019-07-02] MEDS: LISINOPRIL 20 MG TAB PO SCH ×2 (10:00→20:43)
[2019-07-02] MEDS ORDERED: VANCOMYCIN HCL 1,000 MG, VIAL MATE ADAPTER 1 EACH in D5W 250 ML IV SCH (10:00)
[2019-07-02] MEDS: MIRALAX *UNIT DOSE* 17GM PACKET PO SCH (10:01)
[2019-07-02] MEDS: VANCOMYCIN HCL 1,000 MG, VIAL MATE ADAPTER 1 EACH in D5W 250 ML IV SCH (10:01)
[2019-07-02] MEDS: FINASTERIDE 5 MG TAB PO SCH (10:01)
[2019-07-02] MEDS: MOM 30ML SUSPENSION UDC PO SCH (10:01)
--- NOTE | 2019-07-02 12:58 | IPN ---
DATE: 07/02/2019 Mr. Sotomayor seems to be doing well. His wound VAC was removed today. The drain was also removed. He is scheduled to be discharged home on Friday. The infusion company will be doing the teaching today. MEDICATIONS: - vancomycin 1 gram IV q.24 h - rifampin 300 mg p.o. b.i.d. LABS: White count 6.7, hemoglobin 8.4, hematocrit 25.9, ESR 46. Sodium 138, potassium 4.4, chloride 104, bicarb 29, BUN 22, creatinine 1.38, glucose 103, calcium 9.8, CRP 7.62. Vancomycin random level done on 07/02 was 19.2. Wound culture had Staphylococcus coag negative and Corynebacterium species. PHYSICAL EXAMINATION: On physical exam temperature is 97, pulse 80, respirations 20, blood pressure 107/50, O2 sat 95% on room air. Heart normal S1-S2. No murmurs. Lungs are clear. No wheezes or rhonchi. Abdomen soft, nontender. Extremities: Left hip davion in place. Serosanguineous drainage from the left anterior drain site. There is no surrounding cellulitis. Minimal tenderness to touch. IMPRESSION: 1. 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 The patient will need 6 weeks of IV antibiotics. End of therapy will be August 09. Then the patient will be switched to p.o. antibiotics. 2. DVT prophylaxis. There is a drug interaction between Eliquis and rifampin decreasing Eliquis dose by about 50%. I did discuss the case with his primary care provider, Dr. Mccormick who felt the patient is ambulatory enough not to need to increase his dose of Eliquis and increase his risk of bleeding into his hip. PLAN: The patient could be discharged home on Friday with vancomycin 1 gram IV q.24 h, rifampin 300 mg p.o. b.i.d. Monitor CBC, CMP, ESR, CRP and vancomycin trough weekly. Followup in my office in 2 weeks after discharge.
[2019-07-02 15:08] VITALS: BP 103/49
[2019-07-02] MEDS: RIVAROXABAN 10 MG TAB (XARELTO) PO SCH (18:08)
[2019-07-02] MEDS: ACETAMINOPHEN TAB 650MG DOSE (2X325MG) PO PRN (20:37)
[2019-07-02 20:43] VITALS: BP 163/59
[2019-07-02] MEDS: METOPROLOL SUCC (TopROL XL) 50MG **XL** TAB PO SCH (20:43)
[2019-07-02 22:00] VITALS: BP 146/66
[2019-07-03] MEDS ORDERED: PERC5TAB12 PO (05:53)
[2019-07-03] MEDS ORDERED: XARE10TA PO (05:54)
[2019-07-03] MEDS: ACETAMINOPHEN TAB 650MG DOSE (2X325MG) PO PRN ×2 (05:57→16:02)
[2019-07-03] MEDS: SODIUM CHLORIDE 0.9% INJ 10 ML SYR IV SCH (05:57)
[2019-07-03 06:00] VITALS: BP 146/66
[2019-07-03 08:15] VITALS: BP 146/66
[2019-07-03 08:15] LABS: HEMOGLOBIN 8.2 g/dl (13.5-17.5); MEAN CORPUSCULAR HEMOGLOBIN 28.4 pg (27.0-33.0); MEAN CORPUSCULAR HGB CONC 32.8 g/dl (32.0-36.5); MEAN CORPUSCULAR VOLUME 86.5 fl (80.0-96.0); PLATELET COUNT, AUTOMATED 199 10^3/uL (150-450); RED BLOOD COUNT 2.89 10^6/uL (4.30-6.10); WHITE BLOOD COUNT 5.1 10^3/uL (4.0-10.0)
[2019-07-03] MEDS: SENOKOT S TAB PO SCH (08:15)
[2019-07-03] MEDS: MIRALAX *UNIT DOSE* 17GM PACKET PO SCH (08:15)
[2019-07-03] MEDS: TAMSULOSIN 0.4 MG CAP PO SCH (08:15)
[2019-07-03] MEDS: FINASTERIDE 5 MG TAB PO SCH (08:15)
[2019-07-03] MEDS: LISINOPRIL 20 MG TAB PO SCH (08:15)
[2019-07-03] MEDS: MOM 30ML SUSPENSION UDC PO SCH (08:15)
[2019-07-03] MEDS: VANCOMYCIN HCL 1,000 MG, VIAL MATE ADAPTER 1 EACH in D5W 250 ML IV SCH (08:16)
[2019-07-03 08:37] LABS: BLOOD UREA NITROGEN 21 MG/DL (7-18); C REACTIVE PROTEIN QUANTITATIV 5.67 MG/DL (0.00-0.30); CALCIUM LEVEL 9.4 MG/DL (8.8-10.2); CARBON DIOXIDE LEVEL 31 MEQ/L (21-32); CHLORIDE LEVEL 107 MEQ/L (98-107); CREATININE FOR GFR 1.08 MG/DL (0.70-1.30); GLOMERULAR FILTRATION RATE > 60.0 (>35); GLUCOSE, FASTING 91 MG/DL (70-100); POTASSIUM SERUM 4.3 MEQ/L (3.5-5.1); SODIUM LEVEL 140 MEQ/L (136-145)
[2019-07-03 10:03] LABS: ERYTHROCYTE SEDIMENTATION RATE 54 mm/hr (0-20)
[2019-07-03 14:00] VITALS: BP 136/59
[2019-07-03] MEDS ORDERED: LISI-538 PO (17:12)
--- NOTE | 2019-07-08 19:31 | DSES ---
DATE OF ADMISSION: 06/28/2019 DATE OF DISCHARGE: 07/03/2019 ATTENDING PHYSICIAN: Dr. Nickolas Yee ADMISSION DIAGNOSIS: Left hip wound drainage. OTHER DIAGNOSES: 1. Hypertension. 2. Hyperlipidemia. 3. Benign prostatic hypertrophy (BPH). 4. Deep vein thrombosis (DVT). 5. Osteoarthritis. DISCHARGE DIAGNOSIS: Left hip wound infection and dehiscence. OPERATION PERFORMED: 1. Left hip irrigation and debridement. 2. Left hip polyethylene and femoral head exchange. 3. Left hip insertion of antibiotic dissolvable beads. 4. Left hip wound vacuum-assisted closure (VAC) application. HISTORY: On 06/28/2019, an 88-year-old male presented to the office 20 days after a left total hip arthroplasty and was seen in the emergency room two days ago. He noticed serous-colored fluid drainage and opening of his wound and it was felt best to treat with fairly aggressive irrigation, debridement and exploration of the wound. HOSPITAL COURSE: The patient was admitted on the day of surgery and underwent an open debridement and irrigation with a femoral head exchange and insertion of antibiotic dissolvable beads. His hospital course was without complications. He was up with physical therapy with the protocol. His pain was controlled on the day discharge. He was doing well, weightbearing as tolerated on his left lower extremity, and will use deep vein thrombosis (DVT) prophylaxis per the protocol and thromboembolic-deterrent (LIA) stocking for 30 days postoperatively for DVT thrombosis prophylaxis. He will resume his preoperative medications and diet. He was given instructions to include but not limited to wound monitoring and activity limitations. He will use oral pain medications for pain control. He will followup in our office in 10-14 days for surgical followup. Please refer to the medical record for further details.
== END 2019-07-03 16:55 | disposition home health service (06) | DRG 467 ==
LOC: M SDC 11:11 → M MS5PR 13:50 → M SDC 06-29 08:37 → M MS5PR 06-29 08:38 → OBSVTOIN 07-01 07:24
PROVIDERS: ADMIT Orthopaedic Surgery; ATTEND Orthopaedic Surgery
PROC: 0SRB0JA Replacement of Left Hip Joint with Synthetic Substitute, Uncemented, Open Approach (ICD-10-PCS; 2019-06-28)
PROC: 3E0U029 Introduction of Other Anti-infective into Joints, Open Approach (ICD-10-PCS; 2019-06-28)
PROC: 0SPB0JZ Removal of Synthetic Substitute from Left Hip Joint, Open Approach (ICD-10-PCS; principal; 2019-06-28 15:00)
PROC: 02HV33Z Insertion of Infusion Device into Superior Vena Cava, Percutaneous Approach (ICD-10-PCS; 2019-06-30)
DX: T84.52XA Infection and inflammatory reaction due to internal left hip prosthesis, initial encounter (principal); T81.30XA Disruption of wound, unspecified, initial encounter; I10 Essential (primary) hypertension; E78.5 Hyperlipidemia, unspecified; J30.9 Allergic rhinitis, unspecified; N40.0 Benign prostatic hyperplasia without lower urinary tract symptoms; M19.90 Unspecified osteoarthritis, unspecified site; I45.10 Unspecified right bundle-branch block; Z96.643 Presence of artificial hip joint, bilateral; Z86.718 Personal history of other venous thrombosis and embolism; Z98.41 Cataract extraction status, right eye; Z98.42 Cataract extraction status, left eye; Z79.01 Long term (current) use of anticoagulants; Z79.899 Other long term (current) drug therapy; Y83.1 Surgical operation with implant of artificial internal device as the cause of abnormal reaction of the patient, or of later complication, without mention of misadventure at the time of the procedure; Z85.820 Personal history of malignant melanoma of skin

== ENCOUNTER → 2019-08-24 | Outpatient (REF) | payer MEDICARE ==
[~2019-08-24] MED LIST changes: +CRAN400C PO; +D-10TAB2 PO; +LISI-538 PO; +TRAM50TA2 PO
[2019-08-24 13:48] LABS: BASO % 0.7 % (0.0-1.0); EOS # 0.2 10^3/uL (0.0-0.5); EOS % 2.9 % (0.0-3.0); HEMATOCRIT 34.3 % (42.0-52.0); HEMOGLOBIN 10.7 g/dl (13.5-17.5); LYMPH % 17.8 % (24.0-44.0); MEAN CORPUSCULAR HEMOGLOBIN 26.3 pg (27.0-33.0); MEAN CORPUSCULAR HGB CONC 31.2 g/dl (32.0-36.5); MEAN CORPUSCULAR VOLUME 84.3 fl (80.0-96.0); MONO # 0.6 10^3/uL (0.0-0.8); MONO % 10.5 % (0.0-5.0); NEUTROPHILS # 3.8 10^3/uL (1.5-8.5); NEUTROPHILS % 67.6 % (36.0-66.0); PLATELET COUNT, AUTOMATED 205 10^3/uL (150-450); RED BLOOD COUNT 4.07 10^6/uL (4.30-6.10); WHITE BLOOD COUNT 5.6 10^3/uL (4.0-10.0)
[2019-08-24 14:27] LABS: ALBUMIN 3.3 GM/DL (3.2-5.2); ALT/SGPT 51 U/L (12-78); BILIRUBIN,TOTAL 0.4 MG/DL (0.2-1.0); BLOOD UREA NITROGEN 23 MG/DL (7-18); C REACTIVE PROTEIN QUANTITATIV < 0.30 MG/DL (0.00-0.30); CALCIUM LEVEL 9.6 MG/DL (8.8-10.2); CARBON DIOXIDE LEVEL 29 MEQ/L (21-32); CHLORIDE LEVEL 104 MEQ/L (98-107); CREATININE FOR GFR 1.03 MG/DL (0.70-1.30); GLOMERULAR FILTRATION RATE > 60.0 (>35); GLUCOSE, FASTING 88 MG/DL (70-100); POTASSIUM SERUM 3.9 MEQ/L (3.5-5.1); SODIUM LEVEL 140 MEQ/L (136-145); TOTAL PROTEIN 6.3 GM/DL (6.4-8.2)
[2019-08-24 15:46] LABS: ERYTHROCYTE SEDIMENTATION RATE 10 mm/hr (0-20)
== END ==
LOC: M SFHCPLAZ 11:33
PROVIDERS: ATTEND Internal Medicine Infectious Disease
DX: T84.52XD Infection and inflammatory reaction due to internal left hip prosthesis, subsequent encounter (principal)

== ENCOUNTER → 2019-11-16 | Outpatient (REF) | payer MEDICARE ==
[2019-11-16 13:00] LABS: BASO # 0.1 10^3/uL (0.0-0.2); BASO % 0.9 % (0.0-1.0); EOS # 0.2 10^3/uL (0.0-0.5); EOS % 3.3 % (0.0-3.0); HEMATOCRIT 37.3 % (42.0-52.0); HEMOGLOBIN 11.8 g/dl (13.5-17.5); LYMPH % 18.5 % (24.0-44.0); MEAN CORPUSCULAR HEMOGLOBIN 26.5 pg (27.0-33.0); MEAN CORPUSCULAR HGB CONC 31.6 g/dl (32.0-36.5); MEAN CORPUSCULAR VOLUME 83.6 fl (80.0-96.0); MONO # 0.6 10^3/uL (0.0-0.8); MONO % 10.3 % (0.0-5.0); NEUTROPHILS # 3.7 10^3/uL (1.5-8.5); NEUTROPHILS % 66.8 % (36.0-66.0); PLATELET COUNT, AUTOMATED 213 10^3/uL (150-450); RED BLOOD COUNT 4.46 10^6/uL (4.30-6.10); WHITE BLOOD COUNT 5.5 10^3/uL (4.0-10.0)
[2019-11-16 13:20] LABS: ALBUMIN 3.5 GM/DL (3.2-5.2); ALT/SGPT 21 U/L (12-78); BILIRUBIN,TOTAL 0.4 MG/DL (0.2-1.0); BLOOD UREA NITROGEN 16 MG/DL (7-18); C REACTIVE PROTEIN QUANTITATIV < 0.30 MG/DL (0.00-0.30); CALCIUM LEVEL 9.7 MG/DL (8.8-10.2); CARBON DIOXIDE LEVEL 32 MEQ/L (21-32); CHLORIDE LEVEL 105 MEQ/L (98-107); CREATININE FOR GFR 1.01 MG/DL (0.70-1.30); ERYTHROCYTE SEDIMENTATION RATE 17 mm/hr (0-20); GLOMERULAR FILTRATION RATE > 60.0 (>35); GLUCOSE, FASTING 85 MG/DL (70-100); POTASSIUM SERUM 4.5 MEQ/L (3.5-5.1); SODIUM LEVEL 138 MEQ/L (136-145); TOTAL PROTEIN 6.8 GM/DL (6.4-8.2)
== END ==
LOC: M LABDRAW1 11:26
PROVIDERS: ATTEND Internal Medicine Infectious Disease
DX: T84.52XD Infection and inflammatory reaction due to internal left hip prosthesis, subsequent encounter (principal)

== ENCOUNTER → 2020-01-28 | Outpatient (REF) | payer MEDICARE | LOC: M SFHCCLAY 09:16 | PROVIDERS: ATTEND Family Medicine | DX: Z00.00 Encounter for general adult medical examination without abnormal findings (principal); N40.0 Benign prostatic hyperplasia without lower urinary tract symptoms; I10 Essential (primary) hypertension; D64.9 Anemia, unspecified ==

== ENCOUNTER → 2020-06-06 | Outpatient (REF) | payer MEDICARE ==
[~2020-06-06] MED LIST changes: +AMLO1TAB24 PO; -AMLO5TAB6 PO
[2020-06-06 16:06] LABS: HEMATOCRIT 38.8 % (42.0-52.0); HEMOGLOBIN 12.2 g/dl (13.5-17.5); MEAN CORPUSCULAR HEMOGLOBIN 27.3 pg (27.0-33.0); MEAN CORPUSCULAR HGB CONC 31.4 g/dl (32.0-36.5); MEAN CORPUSCULAR VOLUME 86.8 fl (80.0-96.0); PLATELET COUNT, AUTOMATED 180 10^3/uL (150-450); RED BLOOD COUNT 4.47 10^6/uL (4.30-6.10); WHITE BLOOD COUNT 4.8 10^3/uL (4.0-10.0)
[2020-06-06 16:18] LABS: ALBUMIN 3.7 GM/DL (3.2-5.2); ALT/SGPT 21 U/L (12-78); BILIRUBIN,TOTAL 0.4 MG/DL (0.2-1.0); BLOOD UREA NITROGEN 15 MG/DL (7-18); CALCIUM LEVEL 9.7 MG/DL (8.8-10.2); CARBON DIOXIDE LEVEL 30 MEQ/L (21-32); CHLORIDE LEVEL 107 MEQ/L (98-107); CHOLESTEROL LEVEL 176 MG/DL (<200); CREATININE FOR GFR 1.18 MG/DL (0.70-1.30); GLOMERULAR FILTRATION RATE > 60.0 (>35); GLUCOSE, FASTING 75 MG/DL (70-100); HDL CHOLESTEROL 64 MG/DL (>40); LDL CHOLESTEROL 99 MG/DL (<100); NON-HDL-C 112 MG/DL; POTASSIUM SERUM 4.1 MEQ/L (3.5-5.1); SODIUM LEVEL 142 MEQ/L (136-145); TOTAL PROTEIN 6.7 GM/DL (6.4-8.2); TRIGLYCERIDES LEVEL 67 MG/DL (<150)
== END ==
LOC: M SFHCCLAY 10:07
PROVIDERS: ATTEND Family Medicine
DX: K21.9 Gastro-esophageal reflux disease without esophagitis (principal); E55.9 Vitamin D deficiency, unspecified; I10 Essential (primary) hypertension; E78.00 Pure hypercholesterolemia, unspecified

== ENCOUNTER → 2020-12-11 | Outpatient (REF) | payer MEDICARE ==
[~2020-12-11] MED LIST changes: -LISI-538 PO; +LISI20TA33 PO; -LISI40TA PO; +LISI40TA4 PO
[2020-12-11 17:23] LABS: BASO % 0.9 % (0.0-1.0); EOS # 0.3 10^3/uL (0.0-0.5); EOS % 7.9 % (0.0-3.0); HEMATOCRIT 40.5 % (42.0-52.0); HEMOGLOBIN 12.9 g/dl (13.5-17.5); LYMPH # 1.1 10^3/uL (1.5-5.0); LYMPH % 24.7 % (24.0-44.0); MEAN CORPUSCULAR HGB CONC 31.9 g/dl (32.0-36.5); MONO # 0.4 10^3/uL (0.0-0.8); MONO % 8.5 % (2.0-8.0); NEUTROPHILS # 2.5 10^3/uL (1.5-8.5); NEUTROPHILS % 57.8 % (36.0-66.0); PLATELET COUNT, AUTOMATED 178 10^3/uL (150-450); WHITE BLOOD COUNT 4.3 10^3/uL (4.0-10.0)
[2020-12-11 17:47] LABS: ALBUMIN 3.6 GM/DL (3.2-5.2); ALT/SGPT 19 U/L (12-78); BILIRUBIN,TOTAL 0.4 MG/DL (0.2-1.0); BLOOD UREA NITROGEN 14 MG/DL (7-18); CALCIUM LEVEL 9.5 MG/DL (8.8-10.2); CARBON DIOXIDE LEVEL 30 MEQ/L (21-32); CHLORIDE LEVEL 105 MEQ/L (98-107); CHOLESTEROL LEVEL 167 MG/DL (<200); CHOLESTEROL RISK RATIO 2.492 (<5); CREATININE FOR GFR 0.92 MG/DL (0.70-1.30); GLOMERULAR FILTRATION RATE > 60.0 (>35); GLUCOSE, FASTING 88 MG/DL (70-100); HDL CHOLESTEROL 67 MG/DL (>40); LDL CHOLESTEROL 83 MG/DL (<100); NON-HDL-C 100 MG/DL; POTASSIUM SERUM 4.1 MEQ/L (3.5-5.1); SODIUM LEVEL 142 MEQ/L (136-145); TOTAL PROTEIN 6.6 GM/DL (6.4-8.2); TRIGLYCERIDES LEVEL 83 MG/DL (<150)
== END ==
LOC: M SFHCCLAY 13:25
PROVIDERS: ATTEND Family Medicine
DX: I10 Essential (primary) hypertension (principal); E78.00 Pure hypercholesterolemia, unspecified

== ENCOUNTER → 2021-01-12 | Outpatient (REF) | payer MEDICARE ==
[2021-01-12 18:14] LABS: FOLATE > 24.0 NG/ML; THYROID STIMULATING HORMONE 0.811 uIU/ML (0.358-3.740); VITAMIN B12 LEVEL 615 PG/ML
== END ==
LOC: M LABDRAWC 15:48
PROVIDERS: ATTEND Psychiatry & Neurology Neurology
DX: R41.3 Other amnesia (principal); E03.9 Hypothyroidism, unspecified; E53.8 Deficiency of other specified B group vitamins; E51.9 Thiamine deficiency, unspecified

== ENCOUNTER → 2021-06-11 | Outpatient (REF) | payer MEDICARE ==
[2021-06-11 11:54] LABS: APPEARANCE, URINE CLEAR (CLEAR); BACTERIA, URINE AUTO NEGATIVE (NEGATIVE); BILIRUBIN, URINE AUTO NEGATIVE (NEGATIVE); BLOOD, URINE BLOOD 1+ (NEGATIVE); COLOR, URINE STRAW (YELLOW); GLUCOSE, URINE (UA) AUTO NEGATIVE (NEGATIVE); KETONE, URINE AUTO NEGATIVE (NEGATIVE); LEUKOCYTE ESTERASE, URINE AUTO NEGATIVE (NEGATIVE); NITRITE, URINE AUTO NEGATIVE (NEGATIVE); PROTEIN, URINE AUTO NEGATIVE (NEGATIVE); RBC, URINE AUTO 0 /HPF (0-3); SPECIFIC GRAVITY URINE AUTO 1.004 (1.002-1.035); SQUAMOUS EPITHELIAL CELL UR AU 0 /HPF (0-6); UROBILINOGEN, URINE AUTO 0.2 mg/dL (0.0-2.0); WBC, URINE AUTO 0 /HPF (0-3)
[2021-06-11 11:59] LABS: BASO % 0.6 % (0.0-1.0); EOS # 0.3 10^3/uL (0.0-0.5); EOS % 4.9 % (0.0-3.0); HEMATOCRIT 40.3 % (42.0-52.0); HEMOGLOBIN 12.8 g/dl (13.5-17.5); LYMPH # 1.2 10^3/uL (1.5-5.0); LYMPH % 22.6 % (24.0-44.0); MEAN CORPUSCULAR HEMOGLOBIN 27.9 pg (27.0-33.0); MEAN CORPUSCULAR HGB CONC 31.8 g/dl (32.0-36.5); MEAN CORPUSCULAR VOLUME 87.8 fl (80.0-96.0); MONO # 0.4 10^3/uL (0.0-0.8); MONO % 8.4 % (2.0-8.0); NEUTROPHILS # 3.3 10^3/uL (1.5-8.5); NEUTROPHILS % 63.3 % (36.0-66.0); PLATELET COUNT, AUTOMATED 179 10^3/uL (150-450); RED BLOOD COUNT 4.59 10^6/uL (4.30-6.10); WHITE BLOOD COUNT 5.1 10^3/uL (4.0-10.0)
[2021-06-11 12:40] LABS: ALBUMIN 3.4 GM/DL (3.2-5.2); ALT/SGPT 22 U/L (12-78); BILIRUBIN,TOTAL 0.7 MG/DL (0.2-1.0); BLOOD UREA NITROGEN 16 MG/DL (7-18); CALCIUM LEVEL 9.5 MG/DL (8.8-10.2); CARBON DIOXIDE LEVEL 31 MEQ/L (21-32); CHLORIDE LEVEL 107 MEQ/L (98-107); CHOLESTEROL LEVEL 161 MG/DL (<200); CHOLESTEROL RISK RATIO 2.439 (<5); CREATININE FOR GFR 1.12 MG/DL (0.70-1.30); GLOMERULAR FILTRATION RATE > 60.0 (>35); GLUCOSE, FASTING 87 MG/DL (70-100); HDL CHOLESTEROL 66 MG/DL (>40); LDL CHOLESTEROL 84 MG/DL (<100); NON-HDL-C 95 MG/DL; POTASSIUM SERUM 4.2 MEQ/L (3.5-5.1); SODIUM LEVEL 141 MEQ/L (136-145); TOTAL PROTEIN 6.8 GM/DL (6.4-8.2); TRIGLYCERIDES LEVEL 54 MG/DL (<150)
== END ==
LOC: M SFHCCLAY 07:45
PROVIDERS: ATTEND Family Medicine
DX: R30.0 Dysuria (principal); I10 Essential (primary) hypertension; E78.00 Pure hypercholesterolemia, unspecified; K21.9 Gastro-esophageal reflux disease without esophagitis

== ENCOUNTER → 2021-06-27 | Outpatient (REF) | payer MEDICARE ==
[2021-06-27 11:19] LABS: APPEARANCE, URINE CLEAR (CLEAR); BACTERIA, URINE AUTO NEGATIVE (NEGATIVE); BILIRUBIN, URINE AUTO NEGATIVE (NEGATIVE); BLOOD, URINE BLOOD 1+ (NEGATIVE); COLOR, URINE STRAW (YELLOW); GLUCOSE, URINE (UA) AUTO NEGATIVE (NEGATIVE); KETONE, URINE AUTO NEGATIVE (NEGATIVE); LEUKOCYTE ESTERASE, URINE AUTO NEGATIVE (NEGATIVE); NITRITE, URINE AUTO NEGATIVE (NEGATIVE); PROTEIN, URINE AUTO NEGATIVE (NEGATIVE); RBC, URINE AUTO 1 /HPF (0-3); SPECIFIC GRAVITY URINE AUTO 1.003 (1.002-1.035); SQUAMOUS EPITHELIAL CELL UR AU 0 /HPF (0-6); UROBILINOGEN, URINE AUTO 0.2 mg/dL (0.0-2.0); WBC, URINE AUTO 0 /HPF (0-3)
== END ==
LOC: M SFHCCLAY 09:17
PROVIDERS: ATTEND Family Medicine
DX: R31.29 Other microscopic hematuria (principal)

== ENCOUNTER → 2021-12-10 | Outpatient (REF) | payer MEDICARE ==
[2021-12-10 11:16] LABS: BASO % 0.6 % (0.0-1.0); EOS # 0.3 10^3/uL (0.0-0.5); EOS % 5.2 % (0.0-3.0); HEMATOCRIT 39.3 % (42.0-52.0); HEMOGLOBIN 12.9 g/dl (13.5-17.5); LYMPH # 1.2 10^3/uL (1.5-5.0); MEAN CORPUSCULAR HEMOGLOBIN 28.8 pg (27.0-33.0); MEAN CORPUSCULAR HGB CONC 32.8 g/dl (32.0-36.5); MEAN CORPUSCULAR VOLUME 87.7 fl (80.0-96.0); MONO # 0.4 10^3/uL (0.0-0.8); MONO % 8.2 % (2.0-8.0); NEUTROPHILS # 2.9 10^3/uL (1.5-8.5); NEUTROPHILS % 59.8 % (36.0-66.0); PLATELET COUNT, AUTOMATED 166 10^3/uL (150-450); RED BLOOD COUNT 4.48 10^6/uL (4.30-6.10); WHITE BLOOD COUNT 4.8 10^3/uL (4.0-10.0)
[2021-12-10 11:42] LABS: ALBUMIN 3.5 GM/DL (3.2-5.2); ALT/SGPT 12 U/L (12-78); BILIRUBIN,TOTAL 0.6 MG/DL (0.2-1.0); BLOOD UREA NITROGEN 18 MG/DL (7-18); CALCIUM LEVEL 9.4 MG/DL (8.8-10.2); CARBON DIOXIDE LEVEL 30 MEQ/L (21-32); CHLORIDE LEVEL 107 MEQ/L (98-107); CHOLESTEROL LEVEL 148 MG/DL (<200); CHOLESTEROL RISK RATIO 2.466 (<5); CREATININE FOR GFR 0.94 MG/DL (0.70-1.30); FREE T4 1.09 NG/DL (0.76-1.46); GLOMERULAR FILTRATION RATE > 60.0 (>35); GLUCOSE, FASTING 96 MG/DL (70-100); HDL CHOLESTEROL 60 MG/DL (>40); LDL CHOLESTEROL 77 MG/DL (<100); NON-HDL-C 88 MG/DL; POTASSIUM SERUM 4.1 MEQ/L (3.5-5.1); SODIUM LEVEL 140 MEQ/L (136-145); THYROID STIMULATING HORMONE 0.779 uIU/ML (0.358-3.740); TOTAL PROTEIN 6.2 GM/DL (6.4-8.2); TRIGLYCERIDES LEVEL 53 MG/DL (<150)
== END ==
LOC: M SFHCCLAY 08:33
PROVIDERS: ATTEND Family Medicine
DX: K21.00 Gastro-esophageal reflux disease with esophagitis, without bleeding (principal); N40.1 Benign prostatic hyperplasia with lower urinary tract symptoms; E78.00 Pure hypercholesterolemia, unspecified; I73.9 Peripheral vascular disease, unspecified

== ENCOUNTER → 2021-12-31 | Outpatient (REF) | payer MEDICARE ==
[2021-12-31 19:22] LABS: APPEARANCE, URINE HAZY (CLEAR); BACTERIA, URINE AUTO NEGATIVE (NEGATIVE); BILIRUBIN, URINE AUTO NEGATIVE (NEGATIVE); BLOOD, URINE BLOOD NEGATIVE (NEGATIVE); COLOR, URINE YELLOW (YELLOW); GLUCOSE, URINE (UA) AUTO NEGATIVE (NEGATIVE); KETONE, URINE AUTO NEGATIVE (NEGATIVE); LEUKOCYTE ESTERASE, URINE AUTO NEGATIVE (NEGATIVE); MUCUS, URINE SMALL (NEGATIVE); NITRITE, URINE AUTO NEGATIVE (NEGATIVE); PROTEIN, URINE AUTO NEGATIVE (NEGATIVE); RBC, URINE AUTO 3 /HPF (0-3); SPECIFIC GRAVITY URINE AUTO 1.014 (1.002-1.035); SQUAMOUS EPITHELIAL CELL UR AU 0 /HPF (0-6); UROBILINOGEN, URINE AUTO 0.2 mg/dL (0.0-2.0); WBC, URINE AUTO 0 /HPF (0-3)
== END ==
LOC: M SMT 17:49
PROVIDERS: ATTEND Physician Assistant
DX: R30.0 Dysuria (principal)

== ENCOUNTER → 2022-06-10 | Outpatient (REF) | payer MEDICARE ==
[2022-06-10 11:55] LABS: BASO % 0.6 % (0.0-1.0); EOS # 0.3 10^3/uL (0.0-0.5); EOS % 4.8 % (0.0-3.0); HEMOGLOBIN 12.5 g/dl (13.5-17.5); LYMPH # 1.3 10^3/uL (1.5-5.0); LYMPH % 24.3 % (24.0-44.0); MEAN CORPUSCULAR HEMOGLOBIN 28.3 pg (27.0-33.0); MEAN CORPUSCULAR HGB CONC 32.1 g/dl (32.0-36.5); MEAN CORPUSCULAR VOLUME 88.2 fl (80.0-96.0); MONO # 0.5 10^3/uL (0.0-0.8); MONO % 8.8 % (2.0-8.0); NEUTROPHILS # 3.3 10^3/uL (1.5-8.5); NEUTROPHILS % 61.3 % (36.0-66.0); PLATELET COUNT, AUTOMATED 172 10^3/uL (150-450); RED BLOOD COUNT 4.42 10^6/uL (4.30-6.10); WHITE BLOOD COUNT 5.4 10^3/uL (4.0-10.0)
[2022-06-10 12:39] LABS: ALBUMIN 3.6 GM/DL (3.2-5.2); ALT/SGPT 26 U/L (12-78); BILIRUBIN,TOTAL 0.5 MG/DL (0.2-1.0); BLOOD UREA NITROGEN 13 MG/DL (7-18); CALCIUM LEVEL 9.7 MG/DL (8.8-10.2); CARBON DIOXIDE LEVEL 31 MEQ/L (21-32); CHLORIDE LEVEL 106 MEQ/L (98-107); CHOLESTEROL LEVEL 155 MG/DL (<200); CHOLESTEROL RISK RATIO 2.094 (<5); CREATININE FOR GFR 0.97 MG/DL (0.70-1.30); FREE T4 1.13 NG/DL (0.76-1.46); GLOMERULAR FILTRATION RATE > 60.0 (>35); GLUCOSE, FASTING 94 MG/DL (70-100); HDL CHOLESTEROL 74 MG/DL (>40); LDL CHOLESTEROL 69 MG/DL (<100); NON-HDL-C 81 MG/DL; POTASSIUM SERUM 4.1 MEQ/L (3.5-5.1); SODIUM LEVEL 138 MEQ/L (136-145); TOTAL PROTEIN 6.6 GM/DL (6.4-8.2); TRIGLYCERIDES LEVEL 61 MG/DL (<150)
== END ==
LOC: M SFHCCLAY 08:26
PROVIDERS: ATTEND Family Medicine
DX: E78.00 Pure hypercholesterolemia, unspecified (principal); K21.00 Gastro-esophageal reflux disease with esophagitis, without bleeding; N40.1 Benign prostatic hyperplasia with lower urinary tract symptoms; I73.9 Peripheral vascular disease, unspecified